=== PATIENT | male | born 1950 | race Caucasian/White ===

== ENCOUNTER 2016-07-26 23:09 | Inpatient (IN) | payer OTHER ==
[~2016-07-26] VITALS: Ht 177.8 cm; Wt 86.5 kg
--- NOTE | 2016-07-27 05:26 | DIAGNOSTIC IMAGING REPORT ---
PROCEDURE: XR LUMBAR SPINE 2 OR 3 VIEWS INDICATION: LOWER BACK PAIN TECHNIQUE: Three views. COMPARISON: None. FINDINGS: Minor levoscoliosis. Normal alignment without fracture. Severe disc space narrowing of all the lumbar discs with moderate to large spur formation. Degenerative changes of the lower facets. IMPRESSION: 1. Severe degenerative changes.
--- NOTE | 2016-07-27 05:31 | DIAGNOSTIC IMAGING REPORT ---
PROCEDURE: XR CHEST 1 VIEW INDICATION: SHORTNESS OF BREATH TECHNIQUE: Portable AP view 01:33 a.m. COMPARISON: None. FINDINGS: Lungs are clear. Heart and mediastinum are normal. Thorax is normal. IMPRESSION: 1. Negative chest.
--- NOTE | 2016-07-27 06:01 | DIAGNOSTIC IMAGING REPORT ---
PROCEDURE: XR CERVICAL SPINE 2 OR 3 VIEW INDICATION: NECK TRAUMA/INJURY TECHNIQUE: Three views. COMPARISON: None. FINDINGS: Normal alignment without fracture. Straightening of the cervical spine. Severe disc space narrowing at all levels, with large spurs. Mild thickening of the prevertebral soft tissues. Odontoid and lateral masses of C1 are normal. IMPRESSION: 1. Severe degenerative changes 2. Loss of lordosis suggestive of muscular spasm 3. Mild prevertebral soft tissue swelling which may secondary to positioning. Post-traumatic or inflammatory changes are less likely. Correlate clinically 4. Results discussed with Dr. Bradley
--- NOTE | 2016-07-27 11:47 | DIAGNOSTIC IMAGING REPORT ---
PROCEDURE: CT ABD/PELVIS WITH CONTRAST CLINICAL INDICATION: Back pain radiating to the abdomen. TECHNIQUE: 125 ml of Isovue 300 were injected intravenously and axial images were obtained of the entire abdomen and pelvis with sagittal and coronal reformations. COMPARISON: Lumbar spine MRI 07/27/2016. FINDINGS: ABDOMEN: Anterior and bilateral paraspinal soft tissue density from mid L1 extending to the bilateral psoas muscles which is contain a small amount of air, consistent with paraspinal and psoas abscesses (largest on the right 1 cm). There is no evidence of endplate destruction to suggest diskitis. Severe degenerative changes of the spine. Minor left basilar atelectasis and trace left pleural effusion. Normal heart size. Small gallstones. Liver, pancreas, spleen, adrenal glands and the kidneys are normal. Minor atherosclerosis of the aorta. Nonspecific bowel gas pattern. PELVIS: Normal appendix. Mild sigmoid diverticulosis. Enlarged prostate (5.3 cm). Normal bladder. No free fluid or free air. IMPRESSION: 1. Small paraspinal abscess at L1 extending to the psoas muscles bilaterally with small psoas abscesses, largest on the right 1 cm 2. Cholelithiasis 3. Sigmoid diverticulosis 4. Minor left basilar atelectasis and trace left pleural effusion 5. Results discussed with Dr. Mcghee All CT scans at this facility use dose modulation, iterative reconstruction, and/or weight-based dosing when appropriate to reduce radiation dose to as low as reasonably achievable.
--- NOTE | 2016-07-27 11:49 | DIAGNOSTIC IMAGING REPORT ---
PROCEDURE: MR LUMBAR SPINE W/WO CONTRAST INDICATION: BACK PAIN TECHNIQUE: T1, T2 and STIR sagittal images. T1 and T2 axial images. Following 17 mL of intravenous gadolinium (ProHance), FAT-SAT T1 sagittal and axial images were obtained. COMPARISON: Lumbar spine x-ray 07/27/2016. FINDINGS: Grade 1 L1-2, L2-3 and L3-4 retrolisthesis with severe narrowing of all the lumbar discs and moderate to large spurs. L3-4 endplate bone marrow edema and mild enhancement but there is no destruction of the endplates, consistent with reactive endplate bone marrow edema. Fatty endplate degenerative changes at L2-3 and L4-5. There is paraspinal enhancing soft tissues anteriorly and bilaterally from mid L1 to mid L3 with low signal intensity anteriorly suggestive of a small air collection in the right psoas muscle at L2-3, highly suspicious for an abscess. Normal conus. L1-2: Small disc bulge/spur complex and facet arthropathy with mild bilateral of foraminal stenosis. No spinal stenosis. L2-3: Small broad-based disc bulge/spur, with facet arthropathy. Moderate bilateral foraminal stenosis. No spinal stenosis. L3-4: Moderate broad-based disc bulge/spur complex and facet arthropathy. Moderate bilateral foraminal stenosis. No spinal stenosis. L4-5: Small broad-based disc bulge/spur complex and facet arthropathy resulting in moderate bilateral foraminal stenosis. No spinal stenosis. L5-S1: Mild broad-based disc bulge/spur complex and facet arthropathy. There is moderate right and severe left foraminal stenosis. No spinal stenosis. IMPRESSION: 1. Paraspinal enhancing soft tissue from mid L1 to mid L3 consistent with paraspinal and bilateral psoas muscle abscesses. No evidence of diskitis. 2. Severe multilevel degenerative changes with grade 1 L1-2, L2-3 and L3-4 retrolisthesis 3. Mild bilateral L1-2, moderate bilateral L2-3, L3-4, L4-5, moderate right and severe left L5-S1 foraminal stenosis 4. Results discussed with Dr. Mcghee
--- NOTE | 2016-07-27 12:17 | ED NURSING NOTES ---
Clinical Report - Nurses [facility] [address] [place] [address] 07/26/2016 23:14 Patient: MIGDALIA MAURICIO TRIAGE Triage time 00:51 Jul 27 2016. Acuity: LEVEL 3. Chief Complaint: BACK PAIN. NAZARIO COMA SCORE: Nazario Coma Scale: 15- eyes open spontaneously (4); best verbal response- oriented x 4 (5); best motor response- obeys commands (6). --01:00 Ronnell Coburn R.N. 00:51 07/27/16. BP: 108/55. HR: 96. RR: 18. O2 saturation: 100%. Temp: 98.4 F. Pain level now 9/10. --01:00 Ronnell Coburn R.N. Weight: 80.7 kg stated. Height/Length: 70 inches Per Patient. BMI: 25.5. --00:58 Ronnell Coburn R.N. Medications GlyBURIDE Oral. --00:52 Ronnell Coburn R.N. MetFORMIN HCl Oral. --00:52 Ronnell Coburn R.N. Allergies No Known Drug Allergy. --00:53 Ronnell Coburn R.N. History Arrived by private vehicle. Historian: patient. Accompanied by friend. ( Since the injury has been having chills.). He has had numbness, weakness and trouble walking. History of recent trauma (moderate)- lifting injury (Tried to lift a post out of the ground a week ago felt a strain). No tingling, fever or extremity pain. 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 PAST MEDICAL HX: Diabetes mellitus. No history of hypertension, heart disease or lung disease. Tetanus status: up-to-date. Immunizations: up-to-date. SOCIAL HX: Never smoker. History of drug use: marijuana. No alcohol use. No infectious disease exposure. SELF HARM ASSESSMENT: A self harm assessment was performed. The patient answered "no" to the question "Have you recently felt down, depressed, or hopeless?" and "Do you have thoughts of harming or killing yourself?". FALL RISK ASSESSMENT: Fall risk assessment completed. No fall risk identified. NUTRITIONAL RISK ASSESSMENT: The nutritional risk assessment revealed no deficiencies. FUNCTIONAL ASSESSMENT: Functional assessment: no impairments noted. LEARNING NEEDS ASSESSMENT: The learning needs assessment revealed no barriers. ABUSE ASSESSMENT: Abuse assessment: (yes) The patient was asked "Do you feel safe in your home?". SKIN INTEGRITY ASSESSMENT: Skin integrity risk assessment completed. No skin integrity risk identified. --: Ronnell Coburn R.N. PROBLEMS: Headache. Anxiety Reaction. Hearing Loss. Diabetes Mellitus. --00:56 Ronnell Coburn R.N. ADDITIONAL SURGERIES: Elbow surgery . Eye surgery. Left knee . --00:56 Ronnell Coburn R.N. Interventions ID band on patient. --01: Ronnell Coburn R.N. PHYSICAL ASSESSMENT To room via wheelchair. GENERAL / NEURO / PSYCH: Alert. Oriented X 4. Appears anxious. RESPIRATORY: Respirations not labored. Chest nontender. Breath sounds within normal limits. CVS: Normal heart rate and rhythm. Capillary refill less than 2 seconds. GI / : Abdomen soft and nontender. Bowel sounds within normal limits. EXTREMITIES: Sensation intact in extremities. ROM of extremities within normal limits. BACK: ( Pain going down from back to right knee). Normal inspection of the neck and back. Vertebral point tenderness. Soft tissue tenderness. --01: Ronnell Coburn R.N. NURSING PROGRESS NOTES The initial plan of care for this patient includes an assessment with efforts to address patient positioning, appropriate ambient lighting and comfortable environmental temperature; impairment of the musculoskeletal system. Pulse oximeter and NIBP monitor placed on patient. Cold pack applied. Patient gowned. Head of bed elevated 75 degrees. Reassurance given. Call light placed in reach. Side rails up x 2. Bed placed in lowest position. Brakes of bed on. --01: Ronnell Coburn R.N. 01:26 07/27/2016 Site #1 started via IV in the right antecubital space with an 20g angiocath, with aseptic technique and good blood return; one attempt. Blood drawn: rainbow set. Labeled in the presence of the patient and sent to the lab. Saline lock flushed with 10 mL saline. --01: Ronnell Coburn R.N. 01:26 07/27/2016 Dilaudid (HYDROmorphone HCl PF) IVP 0.5 mg given over 1 minute(s) via site #1. 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 IV patency established. IV site checked: no pain, redness, or swelling. IV flushed thoroughly pre- and post-medication administration. --01: Ronnell Coburn R.N. 01:28 07/27/2016 Ativan (LORazepam) IVP 0.5 mg given over 1 minute(s) via site #1. 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 IV patency established. IV site checked: no pain, redness, or swelling. IV flushed thoroughly pre- and post-medication administration. --01:28 Ronnell Coburn R.N. 02:14 07/27/2016 Started bag #1 1000 mL IV Fluids IV NS (Saline); bolus of 750 mL over 46 minute(s) then at 500 mL/hr via site #1 via IV pump. Allergies verified and confirmed 5 rights. IV patency established. IV site checked: no pain, redness, or swelling. IV flushed thoroughly pre- and post-medication administration. --02:17 Arabella Talavera R.N. 02:17 07/27/16. BP: 107/48. HR: 88. RR: 15. O2 saturation: 99% on room air. Bernard-Paz pain scale: 2/10. --02:18 Arabella Talavera R.N. ( urinal placed at bedside, sample requested.). --02:18 Arabella Talavera R.N. ( pt encouraged to give urine sample. Pt to stand at bedside and attempt to use urinal.). --02:56 Arabella Talavera R.N. 03:08 07/27/2016 IV Fluids IV NS Discontinued: bag #1 completed. Total amount infused: 750 mL. IV patency established. IV site checked: no pain, redness, or swelling. IV flushed thoroughly. --03:10 Layla Warner R.N. 03:09 07/27/2016 Started bag #1 250 mL IV Fluids IV NS (Saline); at 500 mL/hr over 2 hour(s) via site #1 via IV pump. Allergies verified and confirmed 5 rights. IV patency established. IV site checked: no pain, redness, or swelling. IV flushed thoroughly pre- and post-medication administration. --03:09 Layla Warner R.N. Checked patient name and birthdate: patient confirmed. Instructions provided to collect clean catch urine and patient verbalized understanding. Clean catch urine collected with return of christine-colored clear urine; sample sent to lab for urinalysis. Specimen labeled in the presence of the patient. --03:11 Layla Warner R.N. 03:44 07/27/2016 IV Fluids IV NS Discontinued: bag #1 completed. Total amount infused: 1000 mL. IV patency established. IV site checked: no pain, redness, or swelling. IV flushed thoroughly. --03:44 Arabella Talavera R.N. 06:46 07/27/16. BP: 116/67. HR: 77. RR: 15. O2 saturation: 99%. --06:47 Arabella Talavera R.N. 07:06 07/27/16. Care transferred and report received. --07:06 Ori Stewart R.N. 07:30 07/27/16. --07:30 Ori Stewart R.N. 07:30 07/27/16. BP: 123/70. HR: 79. RR: 14. O2 saturation: 100% on room air. Temp: 98.1 F (oral). --07:30 Ori Stewart R.N. 07:30 07/27/16. Patient and family informed about reason for wait and about plan of care. --07:30 Ori Stewart R.N. 07:31 07/27/16. GENERAL / NEURO / PSYCH: Alert. Oriented X 4. RESPIRATORY: No respiratory distress. Breath sounds normal. SKIN: Skin is warm and dry. Skin color within normal limits. --07:31 Ori Stewart R.N. 07:44 07/27/2016 Dilaudid (HYDROmorphone HCl PF) IVP 0.5 mg given over 2 minute(s) via site #1. Allergies verified, confirmed 5 rights and sedative warning given to the patient. IV patency established. IV site checked: no pain, redness, or swelling. IV flushed thoroughly pre- and post-medication administration. IVP given by RN. --07:44 Ori Stewart R.N. 07:44 07/27/16. Pulse oximeter and NIBP monitor placed on patient; monitor alarms on. --07:45 Ori Stewart R.N. Patient waiting for diagnostic study to be done (MRI). --07:45 Ori Stewart R.N. 07:53 07/27/16. ( Pt is NPO). --07:53 Ori Stewart R.N. 08:07 07/27/16. ( Tech calling MRI to schedule MRI for today). --08:07 Ori Stewart R.N. 08:31 07/27/16. ( Lab to draw labs). --08:31 Ori Stewart R.N. 08:31 07/27/16. ( MRI at 1000). --08:31 Ori Stewart R.N. 08:57 07/27/2016 Ativan (LORazepam) IVP 0.5 mg given over 2 minute(s) via site #1. Allergies verified, confirmed 5 rights and sedative warning given to the patient. IV patency established. IV site checked: no pain, redness, or swelling. IV flushed thoroughly pre- and post-medication administration. IVP given by RN. --08:57 Ori Stewart R.N. 08:58 07/27/16. ( MRI to be completed at 1000, Consent started). --08:58 Ori Stewart R.N. 08:58 07/27/16. BP: 119/72. HR: 72. RR: 14. O2 saturation: 100% on room air. --08:58 Ori Stewart R.N. 08:58 07/27/16. --08:58 Ori Stewart R.N. 09:37 07/27/16. Patient transported to radiology by wheelchair with tech. (to MRI). --09:37 Ori Stewart R.N. Patient transported to MRI by wheelchair. --09:40 Jillian Keita ER Tech1 10:33 07/27/16. Patient returned from MRI by wheelchair with tech. --10:33 Ori Stewart R.N. 10:34 07/27/16. --10:34 Ori Stewart R.N. 10:33 07/27/16. BP: 121/71. HR: 82. RR: 14. O2 saturation: 100% on room air. Temp: 98.2 F (oral). --10:34 Ori Stewart R.N. 10:50 07/27/2016 Dilaudid (HYDROmorphone HCl PF) IVP 0.5 mg given over 2 minute(s) via site #1. Allergies verified, confirmed 5 rights and sedative warning given to the patient. IV patency established. IV site checked: no pain, redness, or swelling. IV flushed thoroughly pre- and post-medication administration. IVP given by RN. --10:51 Ori Stewart R.N. 10:55 07/27/16. Patient informed about reason for wait and about plan of care. --10:55 Ori Stewart R.N. 10:56 07/27/16. Patient waiting for diagnostic study result (MRI). --10:56 Ori Stewart R.N. 10:56 07/27/16. Patient waiting for disposition. --10:56 Ori Stewart R.N. 11:00 07/27/16. BP: 100/73 (regular adult cuff) taken on the right arm, while sitting. HR: 66. RR: 18. O2 saturation: 100% on room air. --11:00 Smiley Olivas R.N. 11:21 07/27/16. ( Pt to CT as pt has spinal abscess). --11:21 Ori Stewart R.N. 11:47 07/27/16. Patient informed about reason for wait and about plan of care. --11:47 Ori Stewart R.N. 12:17 07/27/2016 Started bag #1 1000 mL IV Fluids IV NS (Saline); at 200 mL/hr over 5 hour(s) via site #1 via IV pump. Allergies verified and confirmed 5 rights. IV patency established. IV site checked: no pain, redness, or swelling. IV flushed thoroughly pre- and post-medication administration. --12:17 Smiley Olivas R.N. 12:17 07/27/16. ( Patient has dry mouth, given mouth swab). --12:17 Smiley Olivas R.N. 12:18 07/27/16. Finger stick glucose: 229 mg/dL; ordered; performed by nurse. --12:18 Ori Stewart R.N. 12:18 07/27/16. Patient informed about plan of care (Transfer). --12:18 Ori Stewart R.N. 12:07/27/16. BP: 115/62. HR: 72. RR: 14. O2 saturation: 100% on room air. --12:22 Ori Stewart R.N. 12:22 07/27/16. --12:22 Ori Stewart R.N. 12:24 07/27/16. ( talking with [facility] transfer center). --12:24 Ori Stewart R.N. 12:33 07/27/16. Patient informed about plan of care. --12:33 Ori Stewart R.N. <<STRICKEN ENTRY-- 12:35 07/27/16. BP: 128/67 (regular adult cuff) taken on the left arm, via an automated monitor, while lying. HR: 99. RR: 14. O2 saturation: 100%. Temp: 98.2 F (oral). Pain level now: 11/11. --12:37 Shell Batista R.N. --END STRIKE>> Charted on wrong patient. --12:39 Shell Batista R.N. <<STRICKEN ENTRY-- Reassurance given. The patient is calm. Overall patient status is the same- he states feels the same. --12:37 Shell Batista R.N. --END STRIKE>> Charted On Wrong Patient --12:39 Shell Batista R.N. 14:18 07/27/16. ( Pt is sleeping). --14:18 Ori Stewart R.N. 14:18 07/27/16. GENERAL / NEURO / PSYCH: Alert. Oriented X 4. RESPIRATORY: No respiratory distress. Breath sounds normal. SKIN: Skin is warm and dry. --14:18 Ori Stewart R.N. 14:57 07/27/16. BP: 113/68. HR: 82. RR: 16. O2 saturation: 100% on room air. Temp: 98.2 F (oral). --14:57 Ori Stewart R.N. 14:57 07/27/16. --14:57 Ori Stewart R.N. 15:52 07/27/16. --15:52 Ori Stewart R.N. 15:52 07/27/16. BP: 119/67. HR: 81. RR: 14. O2 saturation: 100% on room air. Temp: 98.2 F (oral). --15:52 Ori Stewart R.N. 18:30 07/27/2016 Dilaudid (HYDROmorphone HCl PF) IVP 0.5 mg given over 2 minute(s) via site #1. Allergies verified, confirmed 5 rights and sedative warning given to the patient. IV patency established. IV site checked: no pain, redness, or swelling. IV flushed thoroughly pre- and post-medication administration. IVP given by RN. --18:30 Ori Stewart R.N. 18:31 07/27/16. ( Gave pt a sandwich, water and cheese). --18:31 Ori Stewart R.N. 18:31 07/27/16. ( OK to eat per ). --18:31 Ori Stewart R.N. 18:32 07/27/16. Finger stick glucose: 255 mg/dL. --18:32 Reuben Rodarte ( cannot find placement for patient, pt to stay in ER until placement can occur, unable to find an accepting provider/hospital at this time and has not been able to during ER stay.). --18:37 Ori Stewart R.N. 18:35 07/27/16. BP: 117/56. HR: 82. RR: 14. O2 saturation: 100% on room air. Temp: 97.9 F (oral). Pain level now: 06/11. --18:37 Ori Stewart R.N. 18:37 07/27/16. Patient informed about reason for wait and about plan of care. --18:37 Ori Stewart R.N. 19:57 07/27/2016 Started 900 mg of Clindamycin IVPB in bag #1 50 mL; at 100 mL/hr via site #1 via IV pump. Allergies verified and confirmed 5 rights. IV patency established. IV site checked: no pain, redness, or swelling. IV flushed thoroughly pre- and post-medication administration. --19:57 Casey Dia R.N. ( atbx hung for primary RN infusing on pump as ordered). --19:58 Casey Dia R.N. 20:25 07/27/2016 Started 500 mg of IMIPENEM-CILASTATIN IVPB in bag #1 100 mL; at 200 mL/hr over 30 minute(s) via site #1 via IV pump. Allergies verified and confirmed 5 rights. IV patency established. IV site checked: no pain, redness, or swelling. IV flushed thoroughly pre- and post-medication administration. --20:25 Arabella Talavera R.N. 20:25 07/27/2016 Clindamycin IVPB Discontinued: bag #1 completed. Total amount infused: 50 mL. IV patency established. IV site checked: no pain, redness, or swelling. IV flushed thoroughly. --20:25 Arabella Talavera R.N. Intake & Output 10:33 07/27/16. Urine: 400 mL, with return of christine-colored urine. --10:33 Ori Stewart R.N. DISPOSITION / DISCHARGE 20:10 07/27/16. BP: 166/75. HR: 110. RR: 16. O2 saturation: 94% on room air. Temp: 98.9 F (oral). Bernard-Paz pain scale: 07/12. --20:10 Arabella Talavera R.N. Patient's personal items include, clothing; items were placed in belongings bag. --20:11 Arabella Talavera R.N. Report was given to a nurse via a phone call. Report included patient's care, treatment, medications, reviewed medication reconcilliation, and condition (including any recent changes or anticipated changes). All questions were answered. Report was acknowledged. (to REILLY Sanchez). --20:34 Arabella Talavera R.N. Transported via stretcher by nurse with IV. --20:43 Arabella Talavera R.N. 20:44 07/27/2016 Site #[address] upon admission; patent, no pain and no signs of infection or infiltration. --20:44 Arabella Talavera R.N. 20:44 07/27/2016 IMIPENEM-CILASTATIN IVPB Continued: at the rate of 300 mL/hr. 50 mL remaining bag #1. IV patency established. IV site checked: no pain, redness, or swelling. IV flushed thoroughly. --20:44 Arabella Talavera R.N. Locked/Released at 07/28/2016 5:08 by Arabella Talavera R.N.
--- NOTE | 2016-07-27 12:17 | ED CLINICAL REPORT ---
Clinical Report - Physicians/Mid Levels [facility] [address] [place] [address] 07/26/2016 23:14 [id number] Time Seen: 00:51 Jul 27 2016. Arrived- By private vehicle. Historian- patient. HISTORY OF PRESENT ILLNESS Chief Complaint: NECK PAIN and BACK PAIN. It is described as being in the area of the cervical spine and lower lumbar spine. Onset- about 7 days [employer] and it is still present. No bladder dysfunction, bowel dysfunction or motor loss. Sensory loss involving the right foot and left foot (chronically due to diabetes.). Patient notes an injury. Mechanism of injury- (lifting a post). No other injury. Similar symptoms previously: Recent medical care: Not recently seen/assessed. REVIEW OF SYSTEMS No fever, chills, headache, depression or sore throat. No cough, difficulty breathing, chest pain, skin rash or abdominal pain. No nausea, vomiting, diarrhea, black stools or difficulty with urination. No urinary frequency or bloody stools. poor po times 7 days. Not sure how blood sugars are doing. All systems otherwise negative, except as recorded above. PAST HISTORY Diabetes mellitus. Has had back injury. He has had prior back pain. Medications: MetFORMIN HCl Oral. GlyBURIDE Oral. Allergies: No Known Drug Allergy. SOCIAL HISTORY Never smoker. History of drug use: marijuana. No alcohol use. ADDITIONAL NOTES The nursing notes have been reviewed. PHYSICAL EXAM Vital Signs: 07/27/2016 00:51 BP: 108/55. HR: 96. RR: 18. O2 saturation: 100%. Temp: 98.4 F. Appearance: Alert. Appears to be in pain. Patient in moderate distress. (hyperventilating). HEENT: Normal external inspection. ENT: Pharynx normal. Neck: Normal inspection. Pain in the neck upon movement. Decrease in ROM. No vertebral tenderness. No lymphadenopathy or meningeal signs. CVS: Normal heart rate and rhythm. Heart sounds normal. Pulses normal. Respiratory: No respiratory distress. Breath sounds normal. Chest nontender. (hyperventilating). Abdomen: Normal inspection. Soft and nontender. Bowel sounds normal. Back: Normal inspection. Moderate soft tissue tenderness in the right lower and left lower lumbar area. Muscle spasm present. Limited ROM in the back. Skin: Skin warm. Normal skin color. No rash. Extremities: Extremities exhibit normal ROM. Extremities nontender. No calf tenderness. Neuro: Oriented X 3. Mood/affect normal. No motor deficit. Sensory deficit present. Altered sensation to light touch on the right and left leg. Reflexes normal. LABS, X-RAYS, AND EKG X-Rays: Chest X-ray negative. C-Spine X-rays: Moderate degenerative joint disease with moderate narrowing of disc spaces. Views: 3 view C-spine series. Technique: good. The X-rays were independently viewed by me and interpreted contemporaneously by me. Prior films were not available for comparison. LS-Spine X-rays: Degenerative joint disease. (SEVERE DJD L-spine.). Views: AP, lateral and coned down view. The X-rays were independently viewed by me and interpreted contemporaneously by me. CT Abdomen - Pelvis: 1. Small paraspinal abscess at L1 extending to the psoas muscles bilaterally with small psoas abscesses, largest on the right 1 cm 2. Cholelithiasis 3. Sigmoid diverticulosis 4. Minor left basilar atelectasis and trace left pleural effusion. Study type: upper abdomen; lower abdomen; pelvis. Abdomen - pelvic CT performed with IV contrast. The study was interpreted by the radiologist and discussed with the radiologist. MRI L-Spine: Note- 1. Paraspinal enhancing soft tissue from mid L1 to mid L3 consistent with paraspinal and bilateral psoas muscle abscesses. No evidence of diskitis. 2. Severe multilevel degenerative changes with grade 1 L1-2, L2-3 and L3-4 retrolisthesis 3. Mild bilateral L1-2, moderate bilateral L2-3, L3-4, L4-5, moderate right and severe left L5-S1 foraminal stenosis. Laboratory Tests: UA-Culture if indicated: (ERNESTINE: 07/27/2016 03:02) ( MsgRcvd 07/27/2016 03:35) Final results Test Result Flag Units (Reference) URINE COLOR YELLOW URINE APPEARANCE CLEAR URINE GLUCOSE 2+ (NEGATIVE) URINE BILIRUBIN NEGATIVE (NEGATIVE) URINE KETONE TRACE (NEGATIVE) URINE SPECIFIC GRAVITY 1.020 (1.010-1.030) URINE PH 6.0 (5.0-8.0) URINE PROTEIN 1+ (NEGATIVE) URINE UROBILINOGEN 1.0 EU/dL (0.2-1.0) URINE NITRITE NEGATIVE (NEGATIVE) URINE BLOOD 1+ (NEGATIVE) URINE LEUK ESTERASE NEGATIVE (NEGATIVE) URINE RBC 0-1 rbc/hpf (0-1) URINE WBC 1-3 wbc/hpf (0-1) URINE EPITHELIAL CELLS NONE SEEN EPI/hpf (0-5) URINE BACTERIA NONE SEEN (NONE SEEN) URINE COMMENT CULT NOT INDICATED 1+ AMORPHOUSURINE CULTURES ARE SET-UP BASED ON THE FOLLOWING CRITERIA:POSITIVE NITRITEPOSITIVE LEUKOCYTE ESTERASEGREATER THAN 10 WHITE BLOOD CELLSMODERATE (2+) OR GREATER BACTERIA ESR: (ERNESTINE: 07/27/2016 08:40) ( [facility] 07/27/2016 09:26) Final results Test Result Flag Units (Reference) SED RATE WESTERGREN 52 H mm/hr (0-20) CBC w Diff: (ERNESTINE: 07/27/2016 01:30) ( [facility] 07/27/2016 03:30) Final results Test Result Flag Units (Reference) WHITE BLOOD COUNT 9.4 K/uL (4.5-11.5) RED BLOOD COUNT 4.31 L M/uL (4.50-5.90) HEMOGLOBIN 12.8 L gm/dL (13.5-17.5) HEMATOCRIT 37.5 L % (41.0-53.0) MEAN CELL VOLUME 87 fL (80-100) MEAN CORPUSCULAR HGB 30 pg (26-34) MEAN CORPUSCULAR HGB CONC 34 g/dL (31-37) RED CELL DISTRIBUTION WIDTH 13.6 % (11.6-14.8) PLATELET COUNT 174 K/uL (150-400) POLY % 55 % (50-75) BAND % 35 H % (0-8) LYMPH 3 L % (25-40) MONO 7 % (3-14) EOSINOPHIL % 0 % (0-4) BASOPHIL % 0 % (0-2) METAMYELOCYTE % 0 % (0-1) MYELOCYTE 0 % (0-1) OTHER CELL TYPE 0 [id number]: (ERNESTINE: 07/27/2016 08:40) ( [facility] 07/27/2016 09:55) Final results Test Result Flag Units (Reference) C-REACTIVE PROTEIN 39.3 H mg/dL (0.0-0.9) VERIFIED BY DILUTION Lactate, Serum: (ERNESTINE: 07/27/2016 08:40) ( [facility] 07/27/2016 09:12) Final results Test Result Flag Units (Reference) LACTIC ACID 1.1 mmol/L (0.4-2.0) [id number]: (ERNESTINE: 07/27/2016 01:30) ( [facility] 07/27/2016 05:02) Final results Test Result Flag Units (Reference) PROCALCITONIN 4.8 H ng/mL (0-0.5) PCT Concentration: Interpretation : Risk/option for action PCT <=0.5 ng/mL : Systemic : Low risk forinfection(sepsis): progression to severeis not likely. : systemic infection.Local bacterial : CAUTION-PCT levelsinfection is : below 0.5 ng/mL do notpossible. : exclude an infection,because localizedinfections (withoutsystemic signs) may beassociated with suchlow levels. If PCT ismeasured very earlyafter a bacterialchallenge (usually <6hours), these valuesmay still be low. Inthis case PCT shouldbe re-assessed 6-24hours later. PCT >0.5 and : Systemic infection: Moderate risk for<= 2 ng/mL : (sepsis) is : progression to severepossible, but : systemic infection.other conditions : The patient should beare known to : closely monitoredelevate PCT. : both clinically andby re-assessing PCTwithin 6-24 hours. PCT > 2 ng/mL : Systemic infection: High risk for(sepsis) is likely: progression to severeunless other : systemic infection.causes are known. : PCT >= 10 ng/mL : Important systemic: High likelihood ofinflammatory : severe sepsis orresponse, almost : septic shock.exclusively due to:severe bacterial :sepsis or septic :shock. : CHEM 13 PANEL: (ERNESTINE: 07/27/2016 01:30) ( MsgRcvd 07/27/2016 02:08) Final results Test Result Flag Units (Reference) GLUCOSE 305 H mg/dL (70-110) BUN 34 H mg/dL (7-18) CREATININE 1.3 mg/dL (0.6-1.3) Estimated GFR 58.70 mL/min Estimated GFR- >60 mL/min Note: Persistent reduction over 3 months in eGFR<60 mL/min/1.73 m2 defines CKD. Patients with eGFR values>=60 mL/min/1.73 m2 may also have CKD if evidence ofpersistent proteinuria. Additional information may be foundat www.kidney.org. SODIUM 127 L mmol/L (136-145) POTASSIUM 3.2 L mmol/L (3.5-5.1) CHLORIDE 92 L mmol/L (98-107) CARBON DIOXIDE 21 mmol/L (21-32) CALCIUM 9.1 mg/dL (8.5-10.1) TOTAL PROTEIN 6.9 g/dL (6.4-8.2) ALBUMIN 2.4 L g/dL (3.3-5.0) BILIRUBIN, TOTAL 1.0 mg/dL (0.0-1.0) ALKALINE PHOSPHATASE 74 U/L (46-116) AST (SGOT) 15 U/L (15-37) ALT (SGPT) 21 U/L (12-78) MAGNESIUM 1.8 mg/dL (1.8-2.4) CPK 31 U/L (24-260) TROPONIN I <0.05 ng/mL (0.00-1.5) TROPONIN REFERENCE RANGE:<0.1 NEGATIVE0.1-1.5 INDETERMINANT>1.5 POSITIVE . PROGRESS AND PROCEDURES Course of Care: IV NS Dilaudid 0.5 mg IV Ativan 0.5 mg IV Patient is stable. Symptoms better. Pt states he has had chills, he has an elevated band count and elevated PCT of 4.8. Will check CT of lumbar spine. Discussed case with on-call health care provider, (call returned 13:19 [facility] spine at [facility]. Reviewed images and no discitis or epidural abscess, no need for spine Sx.). Discussed case with on-call health care provider, (Dr. Trip Santos at [facility], Gen/Trauma Sx, no beds available.). Patient/family counseled. Disposition: Admitted to Acute Care. Admit decision based on need for further evaluation, monitoring and IV antibiotics. CLINICAL IMPRESSION Single deep abscess (Psoas abscess). (Electronically signed by Jake Mcghee Dr. 07/27/2016 20:41)
--- NOTE | 2016-07-27 12:17 | ED CLINICAL REPORT ---
Clinical Report - Physicians/Mid Levels [facility] [address] [place] [place] [address] 07/26/2016 23:14 [id number] Time Seen: 00:51 Jul 27 2016. Arrived- By private vehicle. Historian- patient. HISTORY OF PRESENT ILLNESS Chief Complaint: NECK PAIN and BACK PAIN. It is described as being in the area of the cervical spine and lower lumbar spine. Onset- about 7 days [employer] and it is still present. No bladder dysfunction, bowel dysfunction or motor loss. Sensory loss involving the right foot and left foot (chronically due to diabetes.). Patient notes an injury. Mechanism of injury- (lifting a post). No other injury. Similar symptoms previously: Recent medical care: Not recently seen/assessed. REVIEW OF SYSTEMS No fever, chills, headache, depression or sore throat. No cough, difficulty breathing, chest pain, skin rash or abdominal pain. No nausea, vomiting, diarrhea, black stools or difficulty with urination. No urinary frequency or bloody stools. poor po times 7 days. Not sure how blood sugars are doing. All systems otherwise negative, except as recorded above. PAST HISTORY Diabetes mellitus. Has had back injury. He has had prior back pain. Medications: MetFORMIN HCl Oral. GlyBURIDE Oral. Allergies: No Known Drug Allergy. SOCIAL HISTORY Never smoker. History of drug use: marijuana. No alcohol use. ADDITIONAL NOTES The nursing notes have been reviewed. PHYSICAL EXAM Vital Signs: 07/27/2016 00:51 BP: 108/55. HR: 96. RR: 18. O2 saturation: 100%. Temp: 98.4 F. Appearance: Alert. Appears to be in pain. Patient in moderate distress. (hyperventilating). HEENT: Normal external inspection. ENT: Pharynx normal. Neck: Normal inspection. Pain in the neck upon movement. Decrease in ROM. No vertebral tenderness. No lymphadenopathy or meningeal signs. CVS: Normal heart rate and rhythm. Heart sounds normal. Pulses normal. Respiratory: No respiratory distress. Breath sounds normal. Chest nontender. (hyperventilating). Abdomen: Normal inspection. Soft and nontender. Bowel sounds normal. Back: Normal inspection. Moderate soft tissue tenderness in the right lower and left lower lumbar area. Muscle spasm present. Limited ROM in the back. Skin: Skin warm. Normal skin color. No rash. Extremities: Extremities exhibit normal ROM. Extremities nontender. No calf tenderness. Neuro: Oriented X 3. Mood/affect normal. No motor deficit. Sensory deficit present. Altered sensation to light touch on the right and left leg. Reflexes normal. LABS, X-RAYS, AND EKG X-Rays: Chest X-ray negative. C-Spine X-rays: Moderate degenerative joint disease with moderate narrowing of disc spaces. Views: 3 view C-spine series. Technique: good. The X-rays were independently viewed by me and interpreted contemporaneously by me. Prior films were not available for comparison. LS-Spine X-rays: Degenerative joint disease. (SEVERE DJD L-spine.). Views: AP, lateral and coned down view. The X-rays were independently viewed by me and interpreted contemporaneously by me. CT Abdomen - Pelvis: 1. Small paraspinal abscess at L1 extending to the psoas muscles bilaterally with small psoas abscesses, largest on the right 1 cm 2. Cholelithiasis 3. Sigmoid diverticulosis 4. Minor left basilar atelectasis and trace left pleural effusion. Study type: upper abdomen; lower abdomen; pelvis. Abdomen - pelvic CT performed with IV contrast. The study was interpreted by the radiologist and discussed with the radiologist. MRI L-Spine: Note- 1. Paraspinal enhancing soft tissue from mid L1 to mid L3 consistent with paraspinal and bilateral psoas muscle abscesses. No evidence of diskitis. 2. Severe multilevel degenerative changes with grade 1 L1-2, L2-3 and L3-4 retrolisthesis 3. Mild bilateral L1-2, moderate bilateral L2-3, L3-4, L4-5, moderate right and severe left L5-S1 foraminal stenosis. Laboratory Tests: UA-Culture if indicated: (ERNESTINE: 07/27/2016 03:02) ( MsgRcvd 07/27/2016 03:35) Final results Test Result Flag Units (Reference) URINE COLOR YELLOW URINE APPEARANCE CLEAR URINE GLUCOSE 2+ (NEGATIVE) URINE BILIRUBIN NEGATIVE (NEGATIVE) URINE KETONE TRACE (NEGATIVE) URINE SPECIFIC GRAVITY 1.020 (1.010-1.030) URINE PH 6.0 (5.0-8.0) URINE PROTEIN 1+ (NEGATIVE) URINE UROBILINOGEN 1.0 EU/dL (0.2-1.0) URINE NITRITE NEGATIVE (NEGATIVE) URINE BLOOD 1+ (NEGATIVE) URINE LEUK ESTERASE NEGATIVE (NEGATIVE) URINE RBC 0-1 rbc/hpf (0-1) URINE WBC 1-3 wbc/hpf (0-1) URINE EPITHELIAL CELLS NONE SEEN EPI/hpf (0-5) URINE BACTERIA NONE SEEN (NONE SEEN) URINE COMMENT CULT NOT INDICATED 1+ AMORPHOUSURINE CULTURES ARE SET-UP BASED ON THE FOLLOWING CRITERIA:POSITIVE NITRITEPOSITIVE LEUKOCYTE ESTERASEGREATER THAN 10 WHITE BLOOD CELLSMODERATE (2+) OR GREATER BACTERIA ESR: (ERNESTINE: 07/27/2016 08:40) ( [facility] 07/27/2016 09:26) Final results Test Result Flag Units (Reference) SED RATE WESTERGREN 52 H mm/hr (0-20) CBC w Diff: (ERNESTINE: 07/27/2016 01:30) ( [facility] 07/27/2016 03:30) Final results Test Result Flag Units (Reference) WHITE BLOOD COUNT 9.4 K/uL (4.5-11.5) RED BLOOD COUNT 4.31 L M/uL (4.50-5.90) HEMOGLOBIN 12.8 L gm/dL (13.5-17.5) HEMATOCRIT 37.5 L % (41.0-53.0) MEAN CELL VOLUME 87 fL (80-100) MEAN CORPUSCULAR HGB 30 pg (26-34) MEAN CORPUSCULAR HGB CONC 34 g/dL (31-37) RED CELL DISTRIBUTION WIDTH 13.6 % (11.6-14.8) PLATELET COUNT 174 K/uL (150-400) POLY % 55 % (50-75) BAND % 35 H % (0-8) LYMPH 3 L % (25-40) MONO 7 % (3-14) EOSINOPHIL % 0 % (0-4) BASOPHIL % 0 % (0-2) METAMYELOCYTE % 0 % (0-1) MYELOCYTE 0 % (0-1) OTHER CELL TYPE 0 [id number]: (ERNESTINE: 07/27/2016 08:40) ( [facility] 07/27/2016 09:55) Final results Test Result Flag Units (Reference) C-REACTIVE PROTEIN 39.3 H mg/dL (0.0-0.9) VERIFIED BY DILUTION Lactate, Serum: (ERNESTINE: 07/27/2016 08:40) ( [facility] 07/27/2016 09:12) Final results Test Result Flag Units (Reference) LACTIC ACID 1.1 mmol/L (0.4-2.0) [id number]: (ERNESTINE: 07/27/2016 01:30) ( [facility] 07/27/2016 05:02) Final results Test Result Flag Units (Reference) PROCALCITONIN 4.8 H ng/mL (0-0.5) PCT Concentration: Interpretation : Risk/option for action PCT <=0.5 ng/mL : Systemic : Low risk forinfection(sepsis): progression to severeis not likely. : systemic infection.Local bacterial : CAUTION-PCT levelsinfection is : below 0.5 ng/mL do notpossible. : exclude an infection,because localizedinfections (withoutsystemic signs) may beassociated with suchlow levels. If PCT ismeasured very earlyafter a bacterialchallenge (usually <6hours), these valuesmay still be low. Inthis case PCT shouldbe re-assessed 6-24hours later. PCT >0.5 and : Systemic infection: Moderate risk for<= 2 ng/mL : (sepsis) is : progression to severepossible, but : systemic infection.other conditions : The patient should beare known to : closely monitoredelevate PCT. : both clinically andby re-assessing PCTwithin 6-24 hours. PCT > 2 ng/mL : Systemic infection: High risk for(sepsis) is likely: progression to severeunless other : systemic infection.causes are known. : PCT >= 10 ng/mL : Important systemic: High likelihood ofinflammatory : severe sepsis orresponse, almost : septic shock.exclusively due to:severe bacterial :sepsis or septic :shock. : CHEM 13 PANEL: (ERNESTINE: 07/27/2016 01:30) ( MsgRcvd 07/27/2016 02:08) Final results Test Result Flag Units (Reference) GLUCOSE 305 H mg/dL (70-110) BUN 34 H mg/dL (7-18) CREATININE 1.3 mg/dL (0.6-1.3) Estimated GFR 58.70 mL/min Estimated GFR- >60 mL/min Note: Persistent reduction over 3 months in eGFR<60 mL/min/1.73 m2 defines CKD. Patients with eGFR values>=60 mL/min/1.73 m2 may also have CKD if evidence ofpersistent proteinuria. Additional information may be foundat www.kidney.org. SODIUM 127 L mmol/L (136-145) POTASSIUM 3.2 L mmol/L (3.5-5.1) CHLORIDE 92 L mmol/L (98-107) CARBON DIOXIDE 21 mmol/L (21-32) CALCIUM 9.1 mg/dL (8.5-10.1) TOTAL PROTEIN 6.9 g/dL (6.4-8.2) ALBUMIN 2.4 L g/dL (3.3-5.0) BILIRUBIN, TOTAL 1.0 mg/dL (0.0-1.0) ALKALINE PHOSPHATASE 74 U/L (46-116) AST (SGOT) 15 U/L (15-37) ALT (SGPT) 21 U/L (12-78) MAGNESIUM 1.8 mg/dL (1.8-2.4) CPK 31 U/L (24-260) TROPONIN I <0.05 ng/mL (0.00-1.5) TROPONIN REFERENCE RANGE:<0.1 NEGATIVE0.1-1.5 INDETERMINANT>1.5 POSITIVE . PROGRESS AND PROCEDURES Course of Care: IV NS Dilaudid 0.5 mg IV Ativan 0.5 mg IV Patient is stable. Symptoms better. Pt states he has had chills, he has an elevated band count and elevated PCT of 4.8. Will check CT of lumbar spine. Discussed case with on-call health care provider, (call returned 13:19 [facility] at [facility]. Reviewed images and no discitis or epidural abscess, no need for spine Sx.). Discussed case with on-call health care provider, (Dr. Trip Santos at [facility], Gen/Trauma Sx, no beds available.). Patient/family counseled. Disposition: Admitted to Acute Care. Admit decision based on need for further evaluation, monitoring and IV antibiotics. CLINICAL IMPRESSION Single deep abscess (Psoas abscess). (Electronically signed by Jake Mcghee Dr. 07/27/2016 20:41)
--- NOTE | 2016-07-27 12:17 | ED ORDER SUMMARY ---
..... Patient: MIGDALIA MAURICIO OrderSheet [facility] VisitID: [id number] [place] [address] 66y, M Registration Date/Time: 07/26/2016 ORDER SHEET Weight: 80.7 kg (stated) Allergies: No Known Drug Allergy GENERAL ORDERS: Chest 1V Urgent (:07/27/2016 Johann SIM) (Ack 1:17 SRegerond) (1:54 GUnger) Cervical Spine 2 or 3V Urgent (:07/27/2016 Johann SIM) (Ack 1:17 SRegerond) (1:54 GUnsamantha) Lumbar Spine 2 or 3V Urgent (:07/27/2016 Johann SIM) (Ack 1:17 SResantiago) (1:54 GUnsamantha) Cardiac Panel Stat (:07/27/2016 Johann SIM) (Ack 1:17 SResantiago) (1:22 LWhalen R.N.) UA-Culture if indicated Urgent (:07/27/2016 Johann SIM) (Ack 1:17 SRegerond) (3:09 CBradburn R.N.) - (need to confirm urine is in lab) (02:26 07/27/2016 Johann SIM) (2:31 SRedmond) - (cath UA) (02:53 07/27/2016 Johann SIM) (Ack 2:54 SRedmond) (2:56 RCollier R.N.) PCT (Procalcitonin) Urgent (04:10 07/27/2016 Johann SIM) (Ack 4:19 SRedmond) (6:37 RCollier R.N.) CT Lumbar Spine wo Cont Urgent (05:43 07/27/2016 Johann SIM) (Ack 5:44 SResantiago) (Cancelled: Other6:01 Johann SIM) MRI Lumbar Spine w/wo Cont (Not Applicable) Urgent (06:01 07/27/2016 Johann SIM) (Ack 6:06 SResantiago) (9:53 Tonny) Lactate, Serum Urgent (08:25 07/27/2016 Johann SIM) (Ack 8:33 JBoardley R.N.) (8:39 oerner) CRP Urgent (08:07/27/2016 Johann SIM) (Ack 8:33 JBoardley R.N.) (8:39 KHoerner) ESR Urgent (08:26 07/27/2016 Johann SIM) (Ack 8:33 JBoardley R.N.) (8:39 oerner) CT Abd/Pel w Cont (Yes) () (Possible paravertebral abscess on MRI of L spine) Urgent (11:02 07/27/2016 Sandee Oscar) (Ack 11:06 Tonny) (11:20 JBoardley R.N.) POC Glucose (12:18 07/27/2016 JBoardley R.N. per protocol) (12:18 JBoardley R.N.) POC Glucose (18:30 07/27/2016 JBoardley R.N. verbal order read back to Sandee Oscar) (18:30 JBoardley R.N.) MEDICATION ORDERS: Imipenem-Cilastatin IV 500 mg (NOW) (19:21 07/27/2016 Sandee Oscar) (Ack 19:43 RCollier R.N.) (20:25 RCollier R.N.) IV FLUIDS: IV NS : initial bolus 750 mL (1000 mL/hr), then 500 mL/hr for 3h (NOW); Routine (01:07/27/2016 Johann SIM) (Ack 1:32 RCollier R.N.) (2:17 RCollier R.N.) Dilaudid IV 0.5 mg (NOW) (01:07/27/2016 Johann SIM) (1:26 BARThalarsen R.N.) Ativan IV 0.5 mg (NOW) (:07/27/2016 Johann SIM) (1:28 LWhalen R.N.) Dilaudid IV 0.5 mg (NOW) (07:38 07/27/2016 Johann SIM) (Ack 7:40 JBoardley R.N.) (7:44 JBoardley R.N.) Ativan IV 0.5 mg (NOW) (07:39 07/27/2016 Johann SIM) (Ack 7:40 Asha R.N.) (8:57 Asha R.N.) Dilaudid IV 0.5 mg (HIGH ALERT MEDICATION, NOW) (10:50 07/27/2016 Asha R.N. verbal order read back to Sandee Oscar) (10:51 Asha R.N.) IV NS : initial bolus none -, then 200 mL/hr for X1 (NOW) (12:08 07/27/2016 Sandee Oscar) (Ack 12:12 Asha R.N.) (12:17 Natalie Moncada.N.) Dilaudid IV 0.5 mg (HIGH ALERT MEDICATION, NOW) (18:30 07/27/2016 Asha R.NCarlos A verbal order read back to Sandee Oscar) (18:30 Asha R.N.) Clindamycin IV 900 mg/50mL (NOW) (19:19 07/27/2016 Sandee Oscar) (Ack 19:43 Cristine R.N.) (19:57 Sharon R.N.) Vancomycin IV 1 gm/200mL (NOW) (19:20 07/27/2016 Sandee Oscar) (Ack 19:43 Cristine R.N.) ORDER SHEET NOTES: [Electronically signed by Jake Mcghee Dr. (20:41 07/27/2016)] [Electronically signed by Arabella Talavera R.N. (05:08 07/28/2016)] [Electronically locked/signed by Arabella Talavera R.N. (05:08 07/28/2016)]
--- NOTE | 2016-07-27 20:38 | History & Physical Report ---
Information Source Information Source: Self Reliability: Fair History Chief Complaint back pain History of Present Illness Patient is a 66 year old male that is presenting with a 8 day history of back pain. Patient had been in his usual state of health when he was doing yard work one day. Patient was pulling on a pole when he felt as if he strained his back. Patient was able to control the pain initially with ibuprofen however the pain never subsided. Patient felt as if the pain was a sharp stabbing sensation which occured in his back. Patient had occasional radiation of nerve type pain, and occasional numbness to other areas including his shoulders, thighs, and trunk. Patient continued to control the pain with ibuprofen and immobility, however when the patients pain did not improve in the slightest and in fact was becoming more aggravating did the patient decide to come to the Er. Patient had no obvious neurological deficits, and his symptoms were limited to pain and numbness. Patient has no other ocmplaints and is currently stable,. Patient History 1. Psoas abscess 2. Back pain 3. Neuropathy 4. Diabetes mellitus Social History Patient currently lives at home by himself. He does not work currently. Patient does not smoke, drink or use illicit substances. Patient manages all his ADLs independetly. Family History Family history was reviewed; no changes noted. Medications and Allergies Medications Home Medications Metformin Glipizide Current Medications Sig/Francia Start time Last Medication Dose Route Stop Time Status Admin Imipenem/Cilastatin 500 MG Q6HR 07/28 0000 UNV Sodium IV Sodium Chloride 100 ML Baclofen 5 MG TID 07/270 AC PO Insulin Human Lispro See Dose ACHS 07/27 2100 AC Insts (1) SC Hydromorphone HCl 1 MG Q3H PRN 07/27 2044 AC IV Acetaminophen 650 MG Q6H PRN 07/27 2029 AC PO Sodium Chloride 1,000 ML ASDIRECTED 07/27 2029 AC IV Dose Instructions: (1)Insulin Human Lispro: LOW DOSE: ACCUCHECK AND SLIDING SCALE >>To change sliding scale DISCONTINUE this order and enter a NEW order. Thanks< Allergies Coded Allergies: NKA (07/27/16) Allergies No Known Drug Allergy. --00:53 Ronnell Coburn, RKranthi. Review of Systems Constitutional Chills, Weakness. Denies: Fever, Sweats, Malaise, Other. Eyes Denies: Pain, Vision Change, Conjunctival Inflammation, Eyelid Inflammation, Redness, Other. ENT Denies: Ear Pain, Ear Discharge, Nose Pain, Nasal Discharge, Nasal Congestion, Mouth Pain, Mouth Swelling, Throat Pain, Throat Swelling, Other. Respiratory Denies: Cough, Dry, SOB w/exertion, Wheezing, Hemoptysis, Pleuritic Pain, Sputum , Other. Cardiovascular Denies: Chest Pain, Palpitations, Orthopnea, PND, Edema, Light-headedness, Other. Gastrointestinal Denies: Nausea, Vomiting, Abdominal Pain, Diarrhea, Constipation, Melena, Hematochezia, Other. Genitourinary Denies: Dysuria, Frequency, Incontinence, Hematuria, Retention, Other. Musculoskeletal Shoulder Pain, Arm Pain, Back Pain. Denies: Neck Pain, Hand Pain, Leg Pain, Foot Pain, Other. Skin Denies: Rash, Lesions, Jaundice, Bruising, Other. Neurological Denies: Weakness, Numbness, Incoordination, Change in speech, Confusion, Seizures, Other. Physical Exam General Appearance Alert, Oriented X3, No acute distress HEENT PERRLA, EOMI, Moist mucous membranes Lungs Clear to auscultation Neck Supple, No JVD, No thyromegaly Cardiovascular Regular rate and rhythm, Normal S1 and S2, No murmurs, gallops, rubs Abdomen Soft, No tenderness, No guarding, No masses, No hepatosplenomegaly Extremities No edema, Normal pulses, No tenderness, Strength = upper ext's, Strength = lower ext's Skin No Breakdown, No Significant Lesions Neurological Normal speech, Normal tone, No lateralizing signs, - sensations decreased in the lower extremities up to the point of the mid thigh - pain with rotation of shoulder, not isolated to any one motion - point pain at the level of L3 - unable to assess gait due to pain - cranial nerves intact Psych/Mental Status Mood normal LAB Results Laboratory Tests 07/27 07/27 07/27 07/27 0130 0130 0302 0840 Chemistry Plasma Sodium (136 - 145 mmol/L) 127 Plasma Potassium (3.5 - 5.1 mmol/L) 3.2 Plasma Chloride (98 - 107 mmol/L) 92 CO2 (Enzymatic) (21 - 32 mmol/L) 21 BUN (7 - 18 mg/dL) 34 Creatinine (0.6 - 1.3 mg/dL) 1.3 Est GFR ( Amer) (mL/min) >60 Est GFR (Non-Af Amer) (mL/min) 58.70 Glucose (70 - 110 mg/dL) 305 Plasma Calcium (8.5 - 10.1 mg/dL) 9.1 Plasma Magnesium (1.8 - 2.4 mg/dL) 1.8 Total Bilirubin (0.0 - 1.0 mg/dL) 1.0 AST (15 - 37 U/L) 15 ALT (12 - 78 U/L) 21 Alkaline Phosphatase (46 - 116 U/L) 74 Creatine Kinase (24 - 260 U/L) 31 Troponin (0.00 - 1.5 ng/mL) <0.05 C-Reactive Protein (0.0 - 0.9 mg/dL) 39.3 Total Protein (6.4 - 8.2 g/dL) 6.9 Albumin (3.3 - 5.0 g/dL) 2.4 Procalcitonin (0 - 0.5 ng/mL) 4.8 Hematology WBC (4.5 - 11.5 K/uL) 9.4 RBC (4.50 - 5.90 M/uL) 4.31 Hgb (13.5 - 17.5 gm/dL) 12.8 Hct (41.0 - 53.0 %) 37.5 MCV (80 - 100 fL) 87 MCH (26 - 34 pg) 30 RDW (11.6 - 14.8 %) 13.6 Neut % (Auto) (50 - 75 %) 55 Lymph % (Auto) (25 - 40 %) 3 [place] % (Auto) (3 - 14 %) 7 Eos % (Auto) (0 - 4 %) 0 Baso % (Auto) (0 - 2 %) 0 Band Neutrophils % (0 - 8 %) 35 Metamyelocytes % (0 - 1 %) 0 Myelocytes (0 - 1 %) 0 Other Cell Type 0 Plt Count, EDTA (150 - 400 K/uL) 174 PUBS MCHC (31 - 37 g/dL) 34 ESR Westergren (0 - 20 mm/hr) 52 Urines Urine Color YELLOW Urine Appearance CLEAR Urine pH (5.0 - 8.0) 6.0 Ur Specific [place] (1.010 - 1.030) 1.020 Urine Protein (NEGATIVE) 1+ Urine Ketones (NEGATIVE) TRACE Urine Blood (NEGATIVE) 1+ Urine Nitrite (NEGATIVE) NEGATIVE Urine Bilirubin (NEGATIVE) NEGATIVE Urine Urobilinogen (0.2 - 1.0 EU/dL) 1.0 Ur Leukocyte Esterase (NEGATIVE) NEGATIVE Urine RBC (0 - 1 rbc/hpf) 0-1 Urine WBC (0 - 1 wbc/hpf) 1-3 Ur Epithelial Cells (0 - 5 EPI/hpf) NONE SEEN Urine Bacteria (NONE SEEN) NONE SEEN Urine Glucose (NEGATIVE) 2+ Urine Comment CULT NOT INDICATED 07/27 0840 Chemistry Lactic Acid (0.4 - 2.0 mmol/L) 1.1 Assessment and Plan Problem List 1. Psoas abscess, right Plan - evidence of right psoas abscess with features of gas within abscess - pt treated with IV vancomycin, imipenim, and clindamycin - will begin imipenem 500 mg q6h - will monitor for improvement - will consult surgery 2. Back pain Plan - secondary to psoas abscess irritation - will treate with opioids and muscle relaxant - will monitor 3. Diabetes mellitus Plan - pt has an established history of diabetes mellitus - will hold glipizide and metformin - will start sliding scale coverage 4. Neuropathy Plan - pt has symptoms of neuropathy - if pain control is inadequate will add gabapentin
[2016-07-27 20:59] VITALS: BP 168/78
[2016-07-27] MEDS ORDERED: METFORMIN HCL500 MG PO (21:46)
[2016-07-27] MEDS ORDERED: GLYBURIDE1.25 MG PO (21:49)
[2016-07-27] MEDS ORDERED: AMBIEN5 MG PO (21:50)
[2016-07-27 22:57] VITALS: BP 151/72
[2016-07-28 02:10] VITALS: BP 148/72
--- NOTE | 2016-07-28 05:09 | ED MED RECONCILIATION SUMMARY ---
Patient: MIGDALIA MAURICIO Medication Reconciliation Report [facility] VisitID: [id number] [address] [place] [address] 66y, M Registration Date/Time: 07/26/2016 Weight: 80.7 kg Height/Length: 70 in. BMI: 25.5 ALLERGIES: No Known Drug Allergy The patient's Home Medications are listed below: THE FOLLOWING MEDICATIONS NEED TO BE RECONCILED: GlyBURIDE Oral MetFORMIN HCl Oral The source(s) of the original Home Medication information: Not obtained. The following Medications were given to the patient in the Emergency Department: Dilaudid [IVP] IVP 0.5 mg, administered: 07/27/2016 1:26:00 AM Ativan [IVP] IVP 0.5 mg, administered: 07/27/2016 1:28:00 AM IV NS IV Fluids bolus 750 mL over 46 minute(s), then 500 mL/hr, administered: 07/27/2016 2:14:00 AM IV NS IV Fluids bolus 0, then 500 mL/hr, administered: 07/27/2016 3:09:00 AM Dilaudid [IVP] IVP 0.5 mg, administered: 07/27/2016 7:44:00 AM Ativan [IVP] IVP 0.5 mg, administered: 07/27/2016 8:57:00 AM Dilaudid [IVP] IVP 0.5 mg, administered: 07/27/2016 10:50:00 AM IV NS IV Fluids bolus 0, then 200 mL/hr, administered: 07/27/2016 12:17:00 PM Dilaudid [IVP] IVP 0.5 mg, administered: 07/27/2016 6:30:00 PM Clindamycin [IVPB] IVPB bolus 0, then 900 mg 100 mL/hr, administered: 07/27/2016 7:57:00 PM IMIPENEM-CILASTATIN [IVPB] IVPB bolus 0, then 500 mg 200 mL/hr, administered: 07/27/2016 8:25:00 PM The following Medications were prescribed to the patient: None.
--- NOTE | 2016-07-28 05:09 | ED MAR SUMMARY ---
..... Medication Administration Record [facility] [address] [facility] [place] [address] Patient: MIGDALIA MAURICIO Visit ID: [id number] 66y, M Weight: 80.7 kg Height/Length: 70 in BMI: 25.5 ALLERGIES: No Known Drug Allergy Given 01:26 07/27/2016 Ronnell Coburn R.N. Medication Administered: DILAUDID [IVP] (HYDROMORPHONE HCL PF), Dose: 0.5 mg IVP over 1 minute(s), Site: #1 right AC. Medication Ordered: Dilaudid IV 0.5 mg (NOW). Given 01:28 07/27/2016 Ronnell Coburn R.N. Medication Administered: ATIVAN [IVP] (LORAZEPAM), Dose: 0.5 mg IVP over 1 minute(s), Site: #1 right AC. Medication Ordered: Ativan IV 0.5 mg (NOW). Start 02:14 07/27/2016 Arabella Talavera RIsmael, Stop 03:08 07/27/2016 Layla Warner R.N. Medication Administered: IV NS (SALINE), Dose: IV Fluids, Rate: 500 mL/hr, Bolus: 750 mL over 46 minute(s), Dispensed: 1000 mL bag, Site: #1 right AC. Medication Ordered: IV NS : initial bolus 750 mL (1000 mL/hr), then 500 mL/hr for 3h (NOW); Routine. Start 03:09 07/27/2016 Layla Warner RIsmael, Stop 03:44 07/27/2016 Arabella Talavera RIsmael Medication Administered: IV NS (SALINE), Dose: IV Fluids over 2 hour(s), Rate: 500 mL/hr, Dispensed: 250 mL bag, Site: #1 right AC. Medication Ordered: IV NS : initial bolus 750 mL (1000 mL/hr), then 500 mL/hr for 3h (NOW); Routine. Given 07:44 07/27/2016 Ori Stewart RIsmael Medication Administered: DILAUDID [IVP] (HYDROMORPHONE HCL PF), Dose: 0.5 mg IVP over 2 minute(s), Site: #1 right AC. Medication Ordered: Dilaudid IV 0.5 mg (NOW). Given 08:57 07/27/2016 Ori Stewart R.N. Medication Administered: ATIVAN [IVP] (LORAZEPAM), Dose: 0.5 mg IVP over 2 minute(s), Site: #1 right AC. Medication Ordered: Ativan IV 0.5 mg (NOW). Given 10:50 07/27/2016 Ori Stewart R.N. Medication Administered: DILAUDID [IVP] (HYDROMORPHONE HCL PF), Dose: 0.5 mg IVP over 2 minute(s), Site: #1 right AC. Medication Ordered: Dilaudid IV 0.5 mg (HIGH ALERT MEDICATION, NOW). Start 12:17 07/27/2016 Smiley Olivas R.N. Medication Administered: IV NS (SALINE), Dose: IV Fluids over 5 hour(s), Rate: 200 mL/hr, Dispensed: 1000 mL bag, Site: #1 right AC. Medication Ordered: IV NS : initial bolus none -, then 200 mL/hr for X1 (NOW). Given 18:30 07/27/2016 Ori Stewart R.N. Medication Administered: DILAUDID [IVP] (HYDROMORPHONE HCL PF), Dose: 0.5 mg IVP over 2 minute(s), Site: #1 right AC. Medication Ordered: Dilaudid IV 0.5 mg (HIGH ALERT MEDICATION, NOW). Start 19:57 07/27/2016 Casey Dia RCarlos ANCarlos A, Stop 20:25 07/27/2016 Arabella Talavera RIsmael Medication Administered: CLINDAMYCIN [IVPB], Dose: 900 mg IVPB, Rate: 100 mL/hr, Dispensed: 50 mL bag, Site: #1 right AC. Medication Ordered: Clindamycin IV 900 mg/50mL (NOW). Start 20:25 07/27/2016 Arabella Talavera R.N., Continued Upon Disposition 20:44 07/27/2016 Arabella Talavera R.N. Medication Administered: IMIPENEM-CILASTATIN [IVPB], Dose: 500 mg IVPB over 30 minute(s), Rate: 200 mL/hr, Dispensed: 100 mL bag, Site: #1 right AC. Medication Ordered: Imipenem-Cilastatin IV 500 mg (NOW).
--- NOTE | 2016-07-28 05:09 | ED DISCHARGE INSTRUCTIONS ---
Patient: HANG MIGDALIA Moncada General Instructions [facility] VisitID: [id number] [address] [place] [address] 66y, M Registration Date/Time: 07/26/2016 Single deep abscess (Psoas abscess). (Electronically signed by Jake Mcghee Dr. 07/27/2016 20:41)
--- NOTE | 2016-07-28 05:09 | ED DISCHARGE INSTRUCTIONS ---
Patient: HANG MIGDALIA Moncada General Instructions [facility] VisitID: [id number] [address] [place] [address] 66y, M Registration Date/Time: 07/26/2016 Single deep abscess (Psoas abscess). (Electronically signed by Jake Mcghee Dr. 07/27/2016 20:41)
--- NOTE | 2016-07-28 05:09 | ED MED RECONCILIATION SUMMARY ---
Patient: MIGDALIA MAURICIO Medication Reconciliation Report [facility] VisitID: [id number] [address] [place] [address] 66y, M Registration Date/Time: 07/26/2016 Weight: 80.7 kg Height/Length: 70 in. BMI: 25.5 ALLERGIES: No Known Drug Allergy The patient's Home Medications are listed below: THE FOLLOWING MEDICATIONS NEED TO BE RECONCILED: GlyBURIDE Oral MetFORMIN HCl Oral The source(s) of the original Home Medication information: Not obtained. The following Medications were given to the patient in the Emergency Department: Dilaudid [IVP] IVP 0.5 mg, administered: 07/27/2016 1:26:00 AM Ativan [IVP] IVP 0.5 mg, administered: 07/27/2016 1:28:00 AM IV NS IV Fluids bolus 750 mL over 46 minute(s), then 500 mL/hr, administered: 07/27/2016 2:14:00 AM IV NS IV Fluids bolus 0, then 500 mL/hr, administered: 07/27/2016 3:09:00 AM Dilaudid [IVP] IVP 0.5 mg, administered: 07/27/2016 7:44:00 AM Ativan [IVP] IVP 0.5 mg, administered: 07/27/2016 8:57:00 AM Dilaudid [IVP] IVP 0.5 mg, administered: 07/27/2016 10:50:00 AM IV NS IV Fluids bolus 0, then 200 mL/hr, administered: 07/27/2016 12:17:00 PM Dilaudid [IVP] IVP 0.5 mg, administered: 07/27/2016 6:30:00 PM Clindamycin [IVPB] IVPB bolus 0, then 900 mg 100 mL/hr, administered: 07/27/2016 7:57:00 PM IMIPENEM-CILASTATIN [IVPB] IVPB bolus 0, then 500 mg 200 mL/hr, administered: 07/27/2016 8:25:00 PM The following Medications were prescribed to the patient: None.
--- NOTE | 2016-07-28 05:09 | ED MAR SUMMARY ---
..... Medication Administration Record [facility] [address] [facility] [place] [address] Patient: MIGDALIA MAURICIO Visit ID: [id number] 66y, M Weight: 80.7 kg Height/Length: 70 in BMI: 25.5 ALLERGIES: No Known Drug Allergy Given 01:26 07/27/2016 Ronnell Coburn R.N. Medication Administered: DILAUDID [IVP] (HYDROMORPHONE HCL PF), Dose: 0.5 mg IVP over 1 minute(s), Site: #1 right AC. Medication Ordered: Dilaudid IV 0.5 mg (NOW). Given 01:28 07/27/2016 Ronnell Coburn R.N. Medication Administered: ATIVAN [IVP] (LORAZEPAM), Dose: 0.5 mg IVP over 1 minute(s), Site: #1 right AC. Medication Ordered: Ativan IV 0.5 mg (NOW). Start 02:14 07/27/2016 Arabella Talavera RIsmael, Stop 03:08 07/27/2016 Layla Warner R.N. Medication Administered: IV NS (SALINE), Dose: IV Fluids, Rate: 500 mL/hr, Bolus: 750 mL over 46 minute(s), Dispensed: 1000 mL bag, Site: #1 right AC. Medication Ordered: IV NS : initial bolus 750 mL (1000 mL/hr), then 500 mL/hr for 3h (NOW); Routine. Start 03:09 07/27/2016 Layla Warner RIsmael, Stop 03:44 07/27/2016 Arabella Talavera RIsmael Medication Administered: IV NS (SALINE), Dose: IV Fluids over 2 hour(s), Rate: 500 mL/hr, Dispensed: 250 mL bag, Site: #1 right AC. Medication Ordered: IV NS : initial bolus 750 mL (1000 mL/hr), then 500 mL/hr for 3h (NOW); Routine. Given 07:44 07/27/2016 Ori Stewart RIsmael Medication Administered: DILAUDID [IVP] (HYDROMORPHONE HCL PF), Dose: 0.5 mg IVP over 2 minute(s), Site: #1 right AC. Medication Ordered: Dilaudid IV 0.5 mg (NOW). Given 08:57 07/27/2016 Ori Stewart R.N. Medication Administered: ATIVAN [IVP] (LORAZEPAM), Dose: 0.5 mg IVP over 2 minute(s), Site: #1 right AC. Medication Ordered: Ativan IV 0.5 mg (NOW). Given 10:50 07/27/2016 Ori Stewart R.N. Medication Administered: DILAUDID [IVP] (HYDROMORPHONE HCL PF), Dose: 0.5 mg IVP over 2 minute(s), Site: #1 right AC. Medication Ordered: Dilaudid IV 0.5 mg (HIGH ALERT MEDICATION, NOW). Start 12:17 07/27/2016 Smiley Olivas R.N. Medication Administered: IV NS (SALINE), Dose: IV Fluids over 5 hour(s), Rate: 200 mL/hr, Dispensed: 1000 mL bag, Site: #1 right AC. Medication Ordered: IV NS : initial bolus none -, then 200 mL/hr for X1 (NOW). Given 18:30 07/27/2016 Ori Stewart R.N. Medication Administered: DILAUDID [IVP] (HYDROMORPHONE HCL PF), Dose: 0.5 mg IVP over 2 minute(s), Site: #1 right AC. Medication Ordered: Dilaudid IV 0.5 mg (HIGH ALERT MEDICATION, NOW). Start 19:57 07/27/2016 Casey Dia RCarlos ANCarlos A, Stop 20:25 07/27/2016 Arabella Talavera RIsmael Medication Administered: CLINDAMYCIN [IVPB], Dose: 900 mg IVPB, Rate: 100 mL/hr, Dispensed: 50 mL bag, Site: #1 right AC. Medication Ordered: Clindamycin IV 900 mg/50mL (NOW). Start 20:25 07/27/2016 Arabella Talavera R.N., Continued Upon Disposition 20:44 07/27/2016 rAabella Talavera R.N. Medication Administered: IMIPENEM-CILASTATIN [IVPB], Dose: 500 mg IVPB over 30 minute(s), Rate: 200 mL/hr, Dispensed: 100 mL bag, Site: #1 right AC. Medication Ordered: Imipenem-Cilastatin IV 500 mg (NOW).
[2016-07-28 07:00] VITALS: BP 114/70
--- NOTE | 2016-07-28 08:23 | Progress Note ---
Subjective General Patient is a 66 year old male that is presenting with a 8 day history of back pain. Patient had been in his usual state of health when he was doing yard work one day. Patient was pulling on a pole when he felt as if he strained his back. Patient was able to control the pain initially with ibuprofen however the pain never subsided. Patient felt as if the pain was a sharp stabbing sensation which occured in his back. Patient had occasional radiation of nerve type pain, and occasional numbness to other areas including his shoulders, thighs, and trunk. Subjective Patient today was seen at bedside. Abscess formation noted in the psoas group. On the right. Patient has limited mobility in the lower extremity and lower spine. Continue the antibiotics. MRSA coverage with that. Vancomycin along with broad-spectrum with the imipenem Patient states that he is doing about what he spent doing. Patient having decent appetite. Physical Exam Vital Signs / I&Os Vital Signs Date Time Temp Pulse Resp B/P Pulse O2 O2 Flow FiO2 Ox Delivery Rate 07/28 0805 2.0 07/28 0700 97.7 88 20 114/70 97 Room Air 07/28 0210 97.9 101 18 148/72 94 Room Air 07/27 2257 98.8 107 16 151/72 96 Room Air 07/27 2059 99.1 107 20 168/78 96 I&O 07/27 0800 07/27 1600 07/28 0000 Intake Total Output Total Balance General Appearance Oriented X3, Cooperative HEENT PERRLA, Moist mucous membranes Lungs Normal air movement Cardiovascular Normal S1 and S2 Abdomen tenderness in the lower quadrant, No rebound, nondistended Extremities Limited mobility in both lower extremity. movements slowed and guarded. Psych/Mental Status Mood normal LAB Results Laboratory Tests 07/27 07/27 07/28 0840 0840 0525 Chemistry Plasma Sodium (136 - 145 mmol/L) 130 Plasma Potassium (3.5 - 5.1 mmol/L) 3.7 Plasma Chloride (98 - 107 mmol/L) 97 CO2 (Enzymatic) (21 - 32 mmol/L) 22 BUN (7 - 18 mg/dL) 27 Creatinine (0.6 - 1.3 mg/dL) 1.1 Est GFR ( Amer) (mL/min) >60 Est GFR (Non-Af Amer) (mL/min) >60 Glucose (70 - 110 mg/dL) 253 Lactic Acid (0.4 - 2.0 mmol/L) 1.1 Plasma Calcium (8.5 - 10.1 mg/dL) 7.8 Plasma Magnesium (1.8 - 2.4 mg/dL) 1.8 Total Bilirubin (0.0 - 1.0 mg/dL) 0.9 AST (15 - 37 U/L) 18 ALT (12 - 78 U/L) 16 Alkaline Phosphatase (46 - 116 U/L) 63 C-Reactive Protein (0.0 - 0.9 mg/dL) 39.3 Total Protein (6.4 - 8.2 g/dL) 5.0 Albumin (3.3 - 5.0 g/dL) 1.7 Hematology WBC (4.5 - 11.5 K/uL) 15.3 RBC (4.50 - 5.90 M/uL) 3.66 Hgb (13.5 - 17.5 gm/dL) 10.9 Hct (41.0 - 53.0 %) 32.3 MCV (80 - 100 fL) 88 MCH (26 - 34 pg) 30 RDW (11.6 - 14.8 %) 14.4 Neut % (Auto) (50 - 75 %) Pending Lymph % (Auto) (25 - 40 %) Pending [place] % (Auto) (3 - 14 %) Pending Band Neutrophils % (0 - 8 %) Pending Plt Count, EDTA (150 - 400 K/uL) 192 PUBS MCHC (31 - 37 g/dL) 34 ESR Westergren (0 - 20 mm/hr) 52 Microbiology Date/Time Procedure - Status Source Growth 07/28 0000 MRSA Screen - RECD NASAL Assessment and Plan Problem List 1. Psoas abscess, right Plan right psoas abscess with features of gas within abscess IV vancomycin continued imipenim, shows MRSA positive Surgery consulted 2. Back pain Plan The patient has reflection of disease process. 3. Neuropathy Plan A neuropathic type pain. This neuropathy is related to the close proximity of the plexus in the psoas Discussed options of getting patient up and out of bed, slow conditioning. Monitor the blood sugars approach therapy from a moderate standpoint. 4. Diabetes mellitus Plan Before meals, at bedtime sugar monitoring. Patient is on a moderate load of insulin to cover blood sugar. E&M Codes Rounding: Inpt-High/[id number]
[2016-07-28 10:00] VITALS: BP 127/69
[2016-07-28 14:35] VITALS: BP 150/70
[2016-07-28 18:58] VITALS: BP 158/78
[2016-07-28 22:17] VITALS: BP 150/71
[2016-07-29 02:23] VITALS: BP 132/61
[2016-07-29 06:53] VITALS: BP 115/62
--- NOTE | 2016-07-29 07:19 | Progress Note ---
Subjective General Note Date: July 29, 2016 Admission Date: July 28, 2016 Hospital Day: 2 PCP: MEDARDO Status: Inpatient AC Advanced Directive: FULL CODE Room: 304 Patient is a 66 year old male that is presenting with a 8 day history of back pain. Patient had been in his usual state of health when he was doing yard work one day. Patient was pulling on a pole when he felt as if he strained his back. Patient was able to control the pain initially with ibuprofen however the pain never subsided. Patient felt as if the pain was a sharp stabbing sensation which occured in his back. Patient had occasional radiation of nerve type pain, and occasional numbness to other areas including his shoulders, thighs, and trunk. Subjective Patient today was seen at bedside. Patient has an abscess on the right psoas with appreciated. Air in the tissue. Continue with the antibiotic therapeutics. Patient was slowly progress his activity level. She states that he's had decent appetite. Patient has not had any other concerns. No shortness of breath. No heart palpitations. Patient continues complaining of a lower lumbar spinal pain. Patient has nerve pain in the lower extremitie. Patient needs None Physical Exam Vital Signs / I&Os Vital Signs Date Time Temp Pulse Resp B/P Pulse O2 O2 Flow FiO2 Ox Delivery Rate 07/29 0653 97.5 73 115/62 96 Room Air 0.0 07/29 0223 98.2 85 15 132/61 98 Room Air 0.0 07/28 2217 98.1 95 18 150/71 97 Room Air 0.0 07/28 1858 98.4 80 18 158/78 99 Room Air 0.0 07/28 1435 99.5 104 20 150/70 100 Room Air 0.0 07/28 1000 97.7 89 20 127/69 96 Room Air 0.0 07/28 0805 2.0 I&O 07/28 0800 07/28 1600 07/29 0000 Intake Total 1838 2347 1460 Output Total 1150 900 Balance 1838 1197 560 General Appearance Oriented X3, Cooperative Lungs Clear to auscultation Neck Supple, No JVD Abdomen No tenderness, No guarding Extremities manipulation of the lower extremity without significant pain. Patient's bilateral hips were put into flexion with adduction and abduction. Patient did not express considerable pain during the activity Skin No Breakdown Psych/Mental Status Mental status normal, Mood normal Assessment and Plan Problem List 1. Psoas abscess, right Plan No changes in antibiotic therapy. We'll continue with the imipenem and the vancomycin. Continue to progress to normalcy. Followed by general surgery 2. Back pain Plan Chronic lower back pain progressively worsened by recent Episode. Abscess formation in the right psoas. Physical therapy and general movement exercises to improve on pain control. 3. Neuropathy Plan Neuropathic pain secondary to the close proximity to this. This was discussed in its probable that once the infection is abated. The neuro conductance will be significantly influence. 4. Diabetes mellitus Plan The moderate dose of the insulin support. Patient's sugars have been running in the high 100s to low 200s. Current status: fair. Anticipated discharge date: 1-2 days Anticipated discharge placement: Patient care time: Time spent in chart review, patient interview, physical exam, CPOE, and care documentation: 25 minutes Visit to patient today: 1 Complexity of care: Moderate. E&M Codes Rounding: Inpt-Moderate/[id number]
[2016-07-29 10:36] VITALS: BP 144/74
[2016-07-29 14:36] VITALS: BP 148/74
[2016-07-29] MEDS ORDERED: ZYRTEC ALLERGY10 MG PO (15:57)
[2016-07-29] MEDS ORDERED: GLIPIZIDE5 MG PO (15:57)
[2016-07-29] MEDS ORDERED: METFORMIN HCL1000 M1 PO (15:58)
[2016-07-29] MEDS ORDERED: VIAGRA100 MG PO (15:59)
[2016-07-29] MEDS ORDERED: AMBIEN5 MG PO (16:00)
[2016-07-29] MEDS ORDERED: EFFEXOR25 MG PO (16:00)
[2016-07-29] MEDS ORDERED: LOTRIMIN AF1 % TOP (16:04)
[2016-07-29] MEDS ORDERED: ANTIPYRINE/BENZOCAIN OT (16:04)
[2016-07-29 19:17] VITALS: BP 179/81
[2016-07-29 22:28] VITALS: BP 131/62
[2016-07-30 02:13] VITALS: BP 131/66
--- NOTE | 2016-07-30 06:56 | Progress Note ---
Subjective General Note Date: July 30, 2016 Admission Date: July 28, 2016 Hospital Day: 3 PCP: MEDARDO Status: Inpatient AC Advanced Directive: FULL CODE Room: 304 Patient is a 66 year old male that is presenting with a 8 day history of back pain. Patient had been in his usual state of health when he was doing yard work one day. Patient was pulling on a pole when he felt as if he strained his back. Patient was able to control the pain initially with ibuprofen however the pain never subsided. Patient felt as if the pain was a sharp stabbing sensation which occured in his back. Patient had occasional radiation of nerve type pain, and occasional numbness to other areas including his shoulders, thighs, and trunk. Subjective: Patient seen at bedside. Patient sleeping soundly and snoring. Patient arousable. Patient's cousin Yaa is at Bed Side. Patient taking steps, walking avoiding quick movements. Appetite has been adequate. Blood sugars are being monitored Patient needs None Physical Exam Vital Signs / I&Os Vital Signs Date Time Temp Pulse Resp B/P Pulse O2 O2 Flow FiO2 Ox Delivery Rate 07/30 0213 98.2 72 16 131/66 98 Room Air 07/29 2228 98.4 88 16 131/62 93 Room Air 07/29 1933 Room Air 07/29 1917 99.0 108 16 179/81 100 07/29 1436 98.2 89 20 148/74 100 07/29 1037 92 96 Room Air 0.0 07/29 1036 97.7 46 24 144/74 96 0.0 07/29 0852 Room Air I&O 07/29 0800 07/29 1600 07/30 0000 Intake Total 2725 2798 Output Total 475 1725 Balance 2250 1073 General Appearance No acute distress, sleeping soundly Lungs Normal air movement Cardiovascular Normal S1 and S2, No murmurs, gallops, rubs Abdomen Normal bowel sounds, Soft, No guarding, No rebound Extremities strength is limited in the lower extremities. Psoas abscess has been found on imaging on the right LAB Results Laboratory Tests 07/30 0515 Chemistry Plasma Sodium (136 - 145 mmol/L) 134 Plasma Potassium (3.5 - 5.1 mmol/L) 4.1 Plasma Chloride (98 - 107 mmol/L) 100 CO2 (Enzymatic) (21 - 32 mmol/L) 21 BUN (7 - 18 mg/dL) 21 Creatinine (0.6 - 1.3 mg/dL) 1.0 Est GFR ( Amer) (mL/min) >60 Est GFR (Non-Af Amer) (mL/min) >60 Glucose (70 - 110 mg/dL) 209 Plasma Calcium (8.5 - 10.1 mg/dL) 7.2 Total Bilirubin (0.0 - 1.0 mg/dL) 1.1 AST (15 - 37 U/L) 20 ALT (12 - 78 U/L) 17 Alkaline Phosphatase (46 - 116 U/L) 82 Total Protein (6.4 - 8.2 g/dL) 5.0 Albumin (3.3 - 5.0 g/dL) 1.6 Hematology WBC (4.5 - 11.5 K/uL) 19.9 RBC (4.50 - 5.90 M/uL) 3.64 Hgb (13.5 - 17.5 gm/dL) 10.8 Hct (41.0 - 53.0 %) 32.0 MCV (80 - 100 fL) 88 MCH (26 - 34 pg) 30 RDW (11.6 - 14.8 %) 14.9 Neut % (Auto) (50 - 75 %) 71 Lymph % (Auto) (25 - 40 %) 4 [place] % (Auto) (3 - 14 %) 4 Eos % (Auto) (0 - 4 %) 0 Baso % (Auto) (0 - 2 %) 0 Band Neutrophils % (0 - 8 %) 21 Metamyelocytes % (0 - 1 %) 0 Myelocytes (0 - 1 %) 0 Other Cell Type 0 Plt Count, EDTA (150 - 400 K/uL) 337 PUBS MCHC (31 - 37 g/dL) 34 Imaging Radiological features of abscess formation shown extending from spine bilaterally to the right. Consider further imaging to document improvement. Assessment and Plan Problem List 1. Psoas abscess, right Plan Psoas abscess seen on the right. This is an extension from a paraspinal abscess seen bilaterally on imaging on during admission; no sign of discitis. Pathogenesis not been identified. Patient is on 2 antibiotics including vancomycin and imipenem. Cultures of all been negative. Consider consultation with ID. Review of the findings with General surgery. 2. Back pain Plan Back pain secondary to abscess formation at L1. The development in the right psoas group. No identified pathogen at this time 3. Neuropathy Plan Neuropathic pain may be consideration given the infection, abscess formation and this L1 spinal region. Patient has weakness but is able to ambulate. Abscess formation of the right psoas limits movement in the right thigh. 4. Diabetes mellitus Plan Continue to monitor blood sugars. Maintain sugars between 120-160. Moderate dose insulin schedule. Current status: poor Anticipated discharge date: 1-2 days Anticipated discharge placement: Unlikely Patient care time: Time spent in chart review, patient interview, physical exam, CPOE, and care documentation: 25 minutes Visit to patient today: 2 Complexity of care: Moderate to severe E&M Codes Rounding: Inpt-High/[id number]
[2016-07-30 07:00] VITALS: BP 139/60
[2016-07-30 10:06] VITALS: BP 157/72
[2016-07-30 14:33] VITALS: BP 168/76
--- NOTE | 2016-07-30 15:55 | DIAGNOSTIC IMAGING REPORT ---
PROCEDURE: ABDOMEN/PELVIS WITH CONTRAST CLINICAL INDICATION: repeat for comparison of initial film; review therapy respon TECHNIQUE: 125 ml of Isovue 300 were injected intravenously and axial images were obtained of the abdomen and pelvis with sagittal and coronal reformations. COMPARISON: 07/27/2016 CT and MRI lumbar spine FINDINGS: ABDOMEN: Interval development of small bilateral pleural effusions and moderate atelectatic change. There is at least one, potentially to small gallstones in the gallbladder neck. Small peripherally enhancing fluid collections in the ventral aspect of each psoas muscle have become slightly more defined, the left has lost its intrinsic gas, but are fairly stable in size. The right measures 3.8 cm in length and the left measures 3.0 cm in length. Adrenal glands, pancreas, kidneys, spleen, retroperitoneal vessels, and ureters appear normal. Nonenlarged retroperitoneal lymph nodes are present. The stomach is filled with ingested material. Moderate retained solid stool. Normal small bowel. PELVIS: The appendix and pelvic small bowel loops are normal. Diverticulosis of the sigmoid colon. No acute diverticulitis. Mildly enlarged prostate gland. Normal urinary bladder and pelvic vessels. Mildly prominent bilateral inguinal lymph nodes. No free fluid. Multilevel disc height loss throughout the lumbar spine. IMPRESSION: 1. Fairly stable appearance to bilateral intramuscular psoas abscesses. 2. Interval development of small bilateral pleural effusions and moderate bibasilar atelectasis. 3. Cholelithiasis. 4. Sigmoid diverticulosis. 5. Mild prostatomegaly. 6. Discussed with Dr. Watts. All CT scans at this facility use dose modulation, iterative reconstruction, and/or weight-based dosing when appropriate to reduce radiation dose to as low as reasonably achievable.
[2016-07-30 18:03] VITALS: BP 151/73
[2016-07-30 22:22] VITALS: BP 142/61
[2016-07-31 02:09] VITALS: BP 149/71
[2016-07-31 06:40] VITALS: BP 151/69
--- NOTE | 2016-07-31 06:53 | Progress Note ---
Subjective General Note Date: July 31, 2016 Admission Date: July 28, 2016 Hospital Day: 4 PCP: MEDARDO Status: Inpatient AC Advanced Directive: FULL CODE Room: 304 Patient is a 66 year old male that is presenting with a 8 day history of back pain. Patient had been in his usual state of health when he was doing yard work one day. Patient was pulling on a pole when he felt as if he strained his back. Patient was able to control the pain initially with ibuprofen however the pain never subsided. Patient felt as if the pain was a sharp stabbing sensation which occured in his back. Patient had occasional radiation of nerve type pain, and occasional numbness to other areas including his shoulders, thighs, and trunk. Patient was admitted with abscess formation in the right psoas and paraspinal abscess at L1 without signs of discitis. This is consistent with emergency department evaluation. Patient was admitted to Dr. Nabeel Howell. Subjective: Patient today reports that he is feeling better than yesterday. Patient is awake, alert, smiling. Patient's had no fevers , benign. Labs were done. Cultures were drawn. Patient had repeat CT imaging of the abdominal and pelvic region. Results are showing persistent signs of abscess in the right psoas and L1 paraspinal region. The urine is negative for UTI. The infection has not worsened. Patient needs Patient is requesting physical therapy to help stretch in the lower extremity Physical Exam Vital Signs / I&Os Vital Signs Date Time Temp Pulse Resp B/P Pulse O2 O2 Flow FiO2 Ox Delivery Rate 07/31 0640 98.2 86 20 151/69 100 Room Air 0.0 07/31 0209 98.1 84 18 149/71 100 Room Air 07/30 2222 98.2 74 18 142/61 99 Room Air 07/30 2057 Room Air 07/30 1803 98.1 100 20 151/73 98 Room Air 07/30 1433 97.9 85 20 168/76 98 Room Air 07/30 1006 97.3 96 20 157/72 95 Room Air 0.0 07/30 0837 Room Air 07/30 0700 97.7 72 16 139/60 99 Room Air 0.0 I&O 07/30 0800 07/30 1600 07/31 0000 Intake Total 675 680 490 Output Total 1500 950 575 Balance -825 -270 -85 General Appearance Oriented X3, Cooperative, No acute distress Lungs Clear to auscultation Neck Supple, No JVD, No thyromegaly Cardiovascular Regular rate and rhythm, Normal S1 and S2 Extremities No cyanosis, No clubbing Psych/Mental Status Mental status normal LAB Results Laboratory Tests 07/30 07/30 07/31 1130 2330 0555 Chemistry Plasma Sodium (136 - 145 mmol/L) 134 Plasma Potassium (3.5 - 5.1 mmol/L) 3.7 Plasma Chloride (98 - 107 mmol/L) 99 CO2 (Enzymatic) (21 - 32 mmol/L) 24 BUN (7 - 18 mg/dL) 19 Creatinine (0.6 - 1.3 mg/dL) 0.9 Est GFR ( Amer) (mL/min) >60 Est GFR (Non-Af Amer) (mL/min) >60 Glucose (70 - 110 mg/dL) 163 Plasma Calcium (8.5 - 10.1 mg/dL) 8.1 Plasma Magnesium (1.8 - 2.4 mg/dL) 1.8 Total Bilirubin (0.0 - 1.0 mg/dL) 0.9 AST (15 - 37 U/L) 21 ALT (12 - 78 U/L) 20 Alkaline Phosphatase (46 - 116 U/L) 87 Total Protein (6.4 - 8.2 g/dL) 5.6 Albumin (3.3 - 5.0 g/dL) 1.5 Hematology WBC (4.5 - 11.5 K/uL) 15.9 RBC (4.50 - 5.90 M/uL) 3.62 Hgb (13.5 - 17.5 gm/dL) 10.7 Hct (41.0 - 53.0 %) 31.9 MCV (80 - 100 fL) 88 MCH (26 - 34 pg) 30 RDW (11.6 - 14.8 %) 15.1 Neut % (Auto) (50 - 75 %) 87.0 Lymph % (Auto) (25 - 40 %) 6.1 [place] % (Auto) (3 - 14 %) 4.7 Eos % (Auto) (0 - 4 %) 2.2 Baso % (Auto) (0 - 2 %) 0 Plt Count, EDTA (150 - 400 K/uL) 399 PUBS MCHC (31 - 37 g/dL) 34 Toxicology Vancomycin Trough (10.0 - 20.0 ug/mL) 11.9 Urine Opiates Screen (NEGATIVE) POSITIVE Urine Methadone Screen (NEGATIVE) NEGATIVE Ur Barbiturates Screen (NEGATIVE) NEGATIVE U Amphetamin/Meth Scrn (NEGATIVE) NEGATIVE MDMA (Ecstasy) Screen (NEGATIVE) NEGATIVE U Benzodiazepines Scrn (NEGATIVE) NEGATIVE Urine Cocaine Screen (NEGATIVE) NEGATIVE U Cannabinoids Screen (NEGATIVE) POSITIVE Urines Urine Color YELLOW Urine Appearance CLEAR Urine pH (5.0 - 8.0) 6.0 Ur Specific Burt (1.010 - 1.030) 1.010 Urine Protein (NEGATIVE) NEGATIVE Urine Ketones (NEGATIVE) NEGATIVE Urine Blood (NEGATIVE) NEGATIVE Urine Nitrite (NEGATIVE) NEGATIVE Urine Bilirubin (NEGATIVE) NEGATIVE Urine Urobilinogen (0.2 - 1.0 EU/dL) 2.0 Ur Leukocyte Esterase (NEGATIVE) NEGATIVE Urine RBC (0 - 1 rbc/hpf) 0-1 Urine WBC (0 - 1 wbc/hpf) 0-1 Ur Epithelial Cells (0 - 5 EPI/hpf) 0-1 Urine Bacteria (NONE SEEN) NONE SEEN Urine Glucose (NEGATIVE) TRACE Urine Comment CULT NOT INDICATED Microbiology Date/Time Procedure - Status Source Growth 07/30 1650 Blood Culture - RECD BLOOD 07/30 1640 Blood Culture - RECD BLOOD Imaging CT abdomen, pelvis. 07/30/2016 IMPRESSION: 1. Fairly stable appearance to bilateral intramuscular psoas abscesses. 2. Interval development of small bilateral pleural effusions and moderate bibasilar atelectasis. 3. Cholelithiasis. 4. Sigmoid diverticulosis. 5. Mild prostatomegaly. Assessment and Plan Problem List 1. Psoas abscess, right Plan Appears to be a bilateral so, as abscess, right greater than left. Repeat imaging of the abdomen and pelvis with contrast showed that the lesions have been stabilized. There is signs of diverticulosis in the sigmoid. There is also times a day. Bilateral pleural effusion with bilateral moderate atelectasis. Antibiotics including the vancomycin and imipenem. Cultures repeated on 11/29/2016. Called [facility] ID to discuss the case, but waiting for return call back from Dr. Sung. The UA was negative Echocardiogram ordered 2. Back pain Plan Back pain is persistent, but seems to be a little bit better. Movements should not be excessive. Light physical therapy can be implemented. 3. Neuropathy Plan Neuropathic pain as a consequence of degenerative joint disease leading to structural occlusion of the exiting nerve roots. However, undetermined involvement of the exiting plexus and level of irritation on the abscess formation. Monitor. Gabapentin for pain control. 4. Diabetes mellitus Plan Blood sugars appear to be in better control. Patient is on a moderate controlling insulin sliding scale. Diabetic diet E&M Codes Rounding: Inpt-Moderate/[id number]
[2016-07-31 10:46] VITALS: BP 175/73
[2016-07-31 13:40] VITALS: BP 160/82
[2016-07-31 18:41] VITALS: BP 167/72
[2016-07-31 23:09] VITALS: BP 160/73
[2016-08-01 02:30] VITALS: BP 146/71
--- NOTE | 2016-08-01 07:17 | Progress Note ---
Subjective General Note Date: August 01, 2016 Admission Date: July 28, 2016 Hospital Day: 5 [facility] Status: Inpatient AC Advanced Directive: FULL CODE Room: 304 Patient is a 66 year old male that is presenting with a 8 day history of back pain. Patient had been in his usual state of health when he was doing yard work one day. Patient was pulling on a pole when he felt as if he strained his back. Patient was able to control the pain initially with ibuprofen however the pain never subsided. Patient felt as if the pain was a sharp stabbing sensation which occured in his back. Patient had occasional radiation of nerve type pain, and occasional numbness to other areas including his shoulders, thighs, and trunk. Patient was admitted with abscess formation in the right psoas and paraspinal abscess at L1 without signs of discitis. This is consistent with emergency department evaluation. Patient was admitted to Dr. Nabeel Howell. Subjective: This patient reports that he is notably improved. Patient states that he's had less pain and lower back. Patient is able to move without considerable pain. Patient does report a right left shoulder pain, neck pain. Patient is having increasing neck pain recently. Discussed the options of care with Dr. Kenney [facility] with [facility] yesterday. Dr. Sung recommended the patient remain on antibiotics for at least 2 more weeks. developing erythematous changes over the dorsum of the left foot. Patient has multiple areas of ulceration at the plantar surface of both feet. Patient states that he has been taken a knife to the bottom of the feet to remove the calluses. Patient needs Constitutional Weakness. Respiratory Denies: SOB w/exertion. Cardiovascular Denies: Palpitations, Orthopnea. Skin Rash, Other. Physical Exam Vital Signs / I&Os Vital Signs Date Time Temp Pulse Resp B/P Pulse O2 O2 Flow FiO2 Ox Delivery Rate 08/01 0230 98.1 90 18 146/71 99 Room Air 07/31 2309 99.1 98 16 160/73 95 Room Air 07/31 1841 98.6 100 20 167/72 99 Room Air 07/31 1340 98.1 89 20 160/82 99 Room Air 0.0 07/31 1046 99.0 96 22 175/73 99 Room Air 07/31 0744 Room Air I&O 07/31 0800 07/31 1600 08/01 0000 Intake Total 500 1640 1118 Output Total 1475 1300 695 Balance -975 340 423 General Appearance Oriented X3, Cooperative HEENT EOMI Lungs Clear to auscultation Cardiovascular Regular rate and rhythm, Normal S1 and S2 Abdomen Normal bowel sounds, Soft Psych/Mental Status Mental status normal, Mood normal Assessment and Plan Problem List 1. Psoas abscess, right Plan Bilateral psoas abscess. This is been appropriately cover this time her antibiotics. Patient did have opiates in his drug screen but denies drug use. Reports that he used a morphine tablet from a friend of his. Patient however has been actively cutting on his feet to reduce the callus size. Patient at times will break the skin. Patient's MRSA nasal swab was negative on admission. Source of infection is unclear at this time. Spoke to Dr. Kenney infectious disease with [facility]. He's made recommendations for the patient to remain on an antibiotic. It may be appropriate for patient be transferred to home or facility for an infusion. Maybe patient should be transferred to [place] with capability of his antibiotics. May consider narrowing to single agent, vancomycin and stop in the emergency. She now has some erythematous changes and ulcerations in the feet bilaterally. The erythema is more notable on the left dorsum of the foot. 2. Back pain Plan Back pain is subsiding. The patient is not feeling as painful as he did. This may be an indication patient is being treated appropriately. Consider a physical therapy assessment. 3. Neuropathy Plan Patient has better neuropathic pain control. Neuro structure and tone is improved. 4. Diabetes mellitus Plan Not as well-controlled on current short acting insulins. We'll plan to start on Lantus 5 units daily. Continue with a short acting coverage for mealtime. Current status: Fair, unstable Anticipated discharge date: Anticipated discharge Anticipated discharge placement: Home Patient care time: Time spent in chart review, patient interview, physical exam, CPOE, and care documentation: 35 minutes Visit to patient today: 1 Complexity of care: High DVT prophylaxis: GI prophylaxis: E&M Codes Rounding: Inpt-High/[id number]
[2016-08-01 08:05] VITALS: BP 150/77
[2016-08-01 11:10] VITALS: BP 163/78
[2016-08-01 18:22] VITALS: BP 172/71
[2016-08-01 22:26] VITALS: BP 151/69
[2016-08-02 02:11] VITALS: BP 173/77
[2016-08-02 06:47] VITALS: BP 165/67
--- NOTE | 2016-08-02 09:28 | Progress Note ---
Subjective General Doing well all over, complain of pain in right shoulder but this is not new, also pain dani hips, which is controlled. Had no fever but chills, slept well, feels much strongerl Physical Exam Vital Signs / I&Os Vital Signs Date Time Temp Pulse Resp B/P Pulse O2 O2 Flow FiO2 Ox Delivery Rate 08/02 0647 98.2 88 20 165/67 98 Room Air 0.0 08/02 0211 98.2 88 20 173/77 100 Room Air 08/01 2226 98.8 81 16 151/69 100 Room Air 08/01 1945 Room Air 08/01 1822 99.9 97 18 172/71 99 Room Air 08/01 1110 92 18 163/78 100 08/01 0922 97.9 I&O 08/01 0800 08/01 1600 08/02 0000 Intake Total 9349 623 9188 Output Total 247 221 2105 Balance 4666 562 7870 General Appearance Alert, No acute distress Lungs Clear to auscultation Cardiovascular Normal S1 and S2 Abdomen Normal bowel sounds, Soft, No tenderness Extremities has erythema with edema in the dorsum of left foot, also small capped uleceration in right G.toe LAB Results Laboratory Tests 08/01 08/02 1130 0420 Chemistry Plasma Sodium (136 - 145 mmol/L) 134 Plasma Potassium (3.5 - 5.1 mmol/L) 3.9 Plasma Chloride (98 - 107 mmol/L) 99 CO2 (Enzymatic) (21 - 32 mmol/L) 26 BUN (7 - 18 mg/dL) 14 Creatinine (0.6 - 1.3 mg/dL) 0.8 Est GFR ( Amer) (mL/min) >60 Est GFR (Non-Af Amer) (mL/min) >60 Glucose (70 - 110 mg/dL) 186 Plasma Calcium (8.5 - 10.1 mg/dL) 7.5 Total Bilirubin (0.0 - 1.0 mg/dL) 0.6 AST (15 - 37 U/L) 24 ALT (12 - 78 U/L) 23 Alkaline Phosphatase (46 - 116 U/L) 85 Total Protein (6.4 - 8.2 g/dL) 5.4 Albumin (3.3 - 5.0 g/dL) 1.4 Hematology WBC (4.5 - 11.5 K/uL) 11.9 RBC (4.50 - 5.90 M/uL) 3.52 Hgb (13.5 - 17.5 gm/dL) 10.2 Hct (41.0 - 53.0 %) 30.8 MCV (80 - 100 fL) 88 MCH (26 - 34 pg) 29 RDW (11.6 - 14.8 %) 15.3 Neut % (Auto) (50 - 75 %) 83.4 Lymph % (Auto) (25 - 40 %) 6.0 [place] % (Auto) (3 - 14 %) 6.3 Eos % (Auto) (0 - 4 %) 3.5 Baso % (Auto) (0 - 2 %) 0.8 Plt Count, EDTA (150 - 400 K/uL) 561 PUBS MCHC (31 - 37 g/dL) 33 Toxicology Vancomycin Trough (10.0 - 20.0 ug/mL) 12.8 Assessment and Plan Problem List 1. Psoas abscess, right Plan continue current abx.s, plan to discharge home with IV abx [facility] 2. Diabetes mellitus Plan needs better controll will adjust the medication 3. Elevated BP without diagnosis of hypertension Plan will adjust medication to controlle BP better
--- NOTE | 2016-08-02 10:29 | Progress Note ---
[place] [address] PROGRESS NOTE Name: MIGDALIA MAURICIO : 50 Sex: Male Report #: [id number] Service Date: 08/02/16 Service Time: 09 Subjective General Doing well all over, complain of pain in right shoulder but this is not new, also pain adni hips, which is controlled. Had no fever but chills, slept well, feels much strongerl Physical Exam Vital Signs / I&Os Vital Signs Date Time Temp Pulse Resp B/P Pulse O2 O2 Flow FiO2 Ox Delivery Rate 08/02 0647 98.2 88 20 165/67 98 Room Air 0.0 08/02 0211 98.2 88 20 173/77 100 Room Air 08/01 2226 98.8 81 16 151/69 100 Room Air 08/01 1945 Room Air 08/01 1822 99.9 97 18 172/71 99 Room Air 08/01 1110 92 18 163/78 100 08/01 0922 97.9 I&O 08/01 0800 08/01 1600 08/02 0000 Intake Total 0994 358 3256 Output Total 728 154 1598 Balance 4679 697 8786 General Appearance Alert, No acute distress Lungs Clear to auscultation Cardiovascular Normal S1 and S2 Abdomen Normal bowel sounds, Soft, No tenderness Extremities has erythema with edema in the dorsum of left foot, also small capped uleceration in right G.toe LAB Results Laboratory Tests 08/01 08/02 1130 0420 Chemistry Plasma Sodium (136 - 145 mmol/L) 134 Plasma Potassium (3.5 - 5.1 mmol/L) 3.9 Plasma Chloride (98 - 107 mmol/L) 99 CO2 (Enzymatic) (21 - 32 mmol/L) 26 BUN (7 - 18 mg/dL) 14 Creatinine (0.6 - 1.3 mg/dL) 0.8 Est GFR ( Amer) (mL/min) >60 Est GFR (Non-Af Amer) (mL/min) >60 Glucose (70 - 110 mg/dL) 186 Plasma Calcium (8.5 - 10.1 mg/dL) 7.5 Total Bilirubin (0.0 - 1.0 mg/dL) 0.6 AST (15 - 37 U/L) 24 ALT (12 - 78 U/L) 23 Alkaline Phosphatase (46 - 116 U/L) 85 Total Protein (6.4 - 8.2 g/dL) 5.4 Albumin (3.3 - 5.0 g/dL) 1.4 Hematology WBC (4.5 - 11.5 K/uL) 11.9 RBC (4.50 - 5.90 M/uL) 3.52 Hgb (13.5 - 17.5 gm/dL) 10.2 Hct (41.0 - 53.0 %) 30.8 MCV (80 - 100 fL) 88 MCH (26 - 34 pg) 29 RDW (11.6 - 14.8 %) 15.3 Neut % (Auto) (50 - 75 %) 83.4 Lymph % (Auto) (25 - 40 %) 6.0 [place] % (Auto) (3 - 14 %) 6.3 Eos % (Auto) (0 - 4 %) 3.5 Baso % (Auto) (0 - 2 %) 0.8 Plt Count, EDTA (150 - 400 K/uL) 561 PUBS MCHC (31 - 37 g/dL) 33 Toxicology Vancomycin Trough (10.0 - 20.0 ug/mL) 12.8 Assessment and Plan Problem List 1. Psoas abscess, right Plan continue current abx.s, plan to discharge home with IV abx [facility] 2. Diabetes mellitus Plan needs better controll will adjust the medication 3. Elevated BP without diagnosis of hypertension Plan will adjust medication to controlle BP better Dictated by: ЕКАТЕРИНА COLLINS DO [id number] [id number]
--- NOTE | 2016-08-02 10:29 | Progress Note ---
[place] [address] PROGRESS NOTE Name: MIGDALIA MAURICIO : 50 Sex: Male Report #: [id number] Service Date: 08/02/16 Service Time: 09 Subjective General Doing well all over, complain of pain in right shoulder but this is not new, also pain dani hips, which is controlled. Had no fever but chills, slept well, feels much strongerl Physical Exam Vital Signs / I&Os Vital Signs Date Time Temp Pulse Resp B/P Pulse O2 O2 Flow FiO2 Ox Delivery Rate 08/02 0647 98.2 88 20 165/67 98 Room Air 0.0 08/02 0211 98.2 88 20 173/77 100 Room Air 08/01 2226 98.8 81 16 151/69 100 Room Air 08/01 1945 Room Air 08/01 1822 99.9 97 18 172/71 99 Room Air 08/01 1110 92 18 163/78 100 08/01 0922 97.9 I&O 08/01 0800 08/01 1600 08/02 0000 Intake Total 6764 378 7655 Output Total 068 848 6657 Balance 5492 555 3628 General Appearance Alert, No acute distress Lungs Clear to auscultation Cardiovascular Normal S1 and S2 Abdomen Normal bowel sounds, Soft, No tenderness Extremities has erythema with edema in the dorsum of left foot, also small capped uleceration in right G.toe LAB Results Laboratory Tests 08/01 08/02 1130 0420 Chemistry Plasma Sodium (136 - 145 mmol/L) 134 Plasma Potassium (3.5 - 5.1 mmol/L) 3.9 Plasma Chloride (98 - 107 mmol/L) 99 CO2 (Enzymatic) (21 - 32 mmol/L) 26 BUN (7 - 18 mg/dL) 14 Creatinine (0.6 - 1.3 mg/dL) 0.8 Est GFR ( Amer) (mL/min) >60 Est GFR (Non-Af Amer) (mL/min) >60 Glucose (70 - 110 mg/dL) 186 Plasma Calcium (8.5 - 10.1 mg/dL) 7.5 Total Bilirubin (0.0 - 1.0 mg/dL) 0.6 AST (15 - 37 U/L) 24 ALT (12 - 78 U/L) 23 Alkaline Phosphatase (46 - 116 U/L) 85 Total Protein (6.4 - 8.2 g/dL) 5.4 Albumin (3.3 - 5.0 g/dL) 1.4 Hematology WBC (4.5 - 11.5 K/uL) 11.9 RBC (4.50 - 5.90 M/uL) 3.52 Hgb (13.5 - 17.5 gm/dL) 10.2 Hct (41.0 - 53.0 %) 30.8 MCV (80 - 100 fL) 88 MCH (26 - 34 pg) 29 RDW (11.6 - 14.8 %) 15.3 Neut % (Auto) (50 - 75 %) 83.4 Lymph % (Auto) (25 - 40 %) 6.0 [place] % (Auto) (3 - 14 %) 6.3 Eos % (Auto) (0 - 4 %) 3.5 Baso % (Auto) (0 - 2 %) 0.8 Plt Count, EDTA (150 - 400 K/uL) 561 PUBS MCHC (31 - 37 g/dL) 33 Toxicology Vancomycin Trough (10.0 - 20.0 ug/mL) 12.8 Assessment and Plan Problem List 1. Psoas abscess, right Plan continue current abx.s, plan to discharge home with IV abx [facility] 2. Diabetes mellitus Plan needs better controll will adjust the medication 3. Elevated BP without diagnosis of hypertension Plan will adjust medication to controlle BP better Dictated by: ЕКАТЕРИНА COLLINS DO 0914 0914
[2016-08-02 11:03] VITALS: BP 168/80
--- NOTE | 2016-08-02 13:50 | DIAGNOSTIC IMAGING REPORT ---
PROCEDURE: XR CHEST 1 VIEW INDICATION: CONFIRM PICC PLACEMENT TECHNIQUE: Portable AP view 01:22 p.m. COMPARISON: Chest 07/27/2016 FINDINGS: Lungs are clear. Heart and mediastinum are normal. Thorax is normal. PICC line is in good position. Tip in the SVC. IMPRESSION: 1. Negative chest. 2. PICC line in good position. Results were called to [id number]
--- NOTE | 2016-08-02 16:42 | DIAGNOSTIC IMAGING REPORT ---
REFERRING PHYSICIAN/PROVIDER: Naresh Shane MD CONSULTING LASTING ROOM SUPERVISOR: Jose Mendenhall MD PROCEDURE: M-mode 2D echocardiography with spectral and color flow Doppler TECHNICAL QUALITY: Fair INDICATION: r/o endocarditis RHYTHM DURING PROCEDURE: Sinus rhythm with PVC's INTERPRETATIONS: LEFT VENTRICLE: Normal left ventricular size with normal left ventricular systolic function. Calculated ejection fraction is 67%. RIGHT VENTRICLE: Normal right ventricular size and systolic function. There is a prominent moderator band in the right ventricle. ATRIA: Severe left atrial enlargement with a LA volume index = 67 ml/m2. Moderate right atrial enlargement. MITRAL VALVE: There is no evidence of mass or thrombus. There is mild mitral regurgitation. AORTIC VALVE: There is no evidence of mass or thrombus. There is no evidence of aortic stenosis. There is trace aortic regurgitation. TRICUSPID VALVE: There is no evidence of mass or thrombus. There is trace mitral regurgitation. Mildly increased right ventricular systolic pressure at 38 mmHg. PULMONIC VALVE: There is trace pulmonic regurgitation GREAT VESSELS: The ascending aorta is normal in size PERICARDIUM: There is a trace, physiologic pericardial effusion IMPRESSION: 1. Normal biventricular size and systolic function 2. Severe left atrial enlargement (LA volume index = 67 ml/m2) 3. Moderate right atrial enlargement 4. Mild mitral regurgitation 5. No evidence of endocarditis on this TTE 6. Mildly increased right ventricular systolic pressure (RVSP = 38 mmHg)
[2016-08-02 19:53] VITALS: BP 166/77
[2016-08-02 22:44] VITALS: BP 158/68
[2016-08-03 02:29] VITALS: BP 132/67
[2016-08-03 07:10] VITALS: BP 128/61
--- NOTE | 2016-08-03 09:17 | Progress Note ---
Subjective General no fever or chills, still has pain in right shoulder (chronic), no lower abdominal pain, no pain in left foot, he thinks his foot improved dramatically, Physical Exam Vital Signs / I&Os Vital Signs Date Time Temp Pulse Resp B/P Pulse O2 O2 Flow FiO2 Ox Delivery Rate 08/03 08 Room Air 08/03 0710 98.1 73 16 128/61 99 Room Air 0.0 08/03 0229 98.4 81 16 132/67 99 Room Air 08/02 2244 98.6 87 20 158/68 99 Room Air 08/02 2109 Room Air 08/02 195 98.2 86 22 166/77 100 Room Air 08/02 1103 99.0 93 22 168/80 99 Room Air 0.0 08/02 0950 98 I&O 08/03 0000 08/02 1600 08/02 08 Intake Total 7226 571 3887 Output Total 1949 2024 1250 Balance -595 -1199 670 General Appearance No acute distress Lungs Clear to auscultation Cardiovascular Normal S1 and S2 Extremities erythema and edema improved in left foot not tender in palpation LAB Results Laboratory Tests 08/03 0425 Chemistry Plasma Sodium (136 - 145 mmol/L) 136 Plasma Potassium (3.5 - 5.1 mmol/L) 3.7 Plasma Chloride (98 - 107 mmol/L) 100 CO2 (Enzymatic) (21 - 32 mmol/L) 28 BUN (7 - 18 mg/dL) 14 Creatinine (0.6 - 1.3 mg/dL) 0.9 Est GFR ( Amer) (mL/min) >60 Est GFR (Non-Af Amer) (mL/min) >60 Glucose (70 - 110 mg/dL) 125 Plasma Calcium (8.5 - 10.1 mg/dL) 8.0 Hematology WBC (4.5 - 11.5 K/uL) 10.1 RBC (4.50 - 5.90 M/uL) 3.39 Hgb (13.5 - 17.5 gm/dL) 9.8 Hct (41.0 - 53.0 %) 29.7 MCV (80 - 100 fL) 88 MCH (26 - 34 pg) 29 RDW (11.6 - 14.8 %) 14.6 Neut % (Auto) (50 - 75 %) 77.9 Lymph % (Auto) (25 - 40 %) 11.5 [place] % (Auto) (3 - 14 %) 7.3 Eos % (Auto) (0 - 4 %) 3.3 Baso % (Auto) (0 - 2 %) 0 Plt Count, EDTA (150 - 400 K/uL) 587 PUBS MCHC (31 - 37 g/dL) 33 Microbiology Date/Time Procedure - Status Source Growth 08/03 0306 MRSA Screen - RECD NASAL Assessment and Plan Problem List 1. Psoas abscess, right Plan continue IV abx total 2 wks, might need SNIF for this 2. Diabetes mellitus Plan blood suger much better controlled now 3. Elevated BP without diagnosis of hypertension Plan improved on lisinopril 4. Cellulitis of left foot Plan improved now on IV abx
[2016-08-03 10:06] VITALS: BP 163/72
[2016-08-03 14:39] VITALS: BP 147/72
[2016-08-03 18:22] VITALS: BP 161/66
[2016-08-03 22:20] VITALS: BP 158/76
[2016-08-04 03:46] VITALS: BP 177/82
[2016-08-04 06:52] VITALS: BP 133/70
--- NOTE | 2016-08-04 07:39 | Progress Note ---
Subjective General the pain in right shoulder is controlled no abd. pain, no fever mild chills, no pain in left foot, slept well, feels comfortalbe ambulating fine Physical Exam Vital Signs / I&Os Vital Signs Date Time Temp Pulse Resp B/P Pulse O2 O2 Flow FiO2 Ox Delivery Rate 08/04 0652 98.8 81 18 133/70 97 Room Air 0.0 08/04 0346 98.8 94 14 177/82 100 Room Air 08/03 2220 98.4 90 12 158/76 97 Room Air 08/03 1935 Room Air 0.0 08/03 1822 98.2 95 16 161/66 99 05/ 1439 98.8 82 16 147/72 100 05/ 1006 98.2 93 20 163/72 99 Room Air 0.0 08/03 0800 Room Air I&O 08/04 0000 08/03 1600 08/03 0800 Intake Total 1558 2256 1783 Output Total 1950 1750 2750 Balance -392 506 -967 General Appearance No acute distress Lungs Clear to auscultation Cardiovascular Regular rate and rhythm, Normal S1 and S2, No murmurs, gallops, rubs Abdomen Normal bowel sounds, Soft, No tenderness Extremities cellulitis in left foot is the same as yesterday Assessment and Plan Problem List 1. Psoas abscess Plan continue abx.s for one more week needs facility to do these so can be discharged 2. Diabetes mellitus Plan controlled now on lantus 3. HTN (hypertension) Plan controlled on lisinopril 4. Hyponatremia Plan will stop IV fluid since can drink now
[2016-08-04 11:42] VITALS: BP 139/71
[2016-08-04 14:43] VITALS: BP 150/74
[2016-08-04 18:12] VITALS: BP 148/66
[2016-08-04 22:40] VITALS: BP 151/72
[2016-08-05 02:41] VITALS: BP 149/67
[2016-08-05 06:36] VITALS: BP 153/68
--- NOTE | 2016-08-05 07:41 | Progress Note ---
Subjective General no pain except back pain only when he has chills, concerned about back pain, no fever, eating and drinking and sleepin, ambulating fine Physical Exam Vital Signs / I&Os Vital Signs Date Time Temp Pulse Resp B/P Pulse O2 O2 Flow FiO2 Ox Delivery Rate 08/05 0636 98.4 81 18 153/68 98 Room Air 08/05 0241 98.2 80 16 149/67 100 Room Air 0.0 05 2240 98.1 88 16 151/72 100 Room Air 08/04 2112 Room Air 0.0 08/04 1812 100.6 85 16 148/66 100 05 1443 98.4 89 16 150/74 100 05 1142 98.1 93 18 139/71 98 Room Air 0.0 I&O 08/05 0000 08/04 1600 08/04 0800 Intake Total 690 1877 1273 Output Total 1750 1140 2075 Balance -1060 737 -802 General Appearance No acute distress Lungs Clear to auscultation Cardiovascular Regular rate and rhythm, Normal S1 and S2 Abdomen Normal bowel sounds, Soft, No tenderness Extremities erythema in left foot improved today, swelling down too, also erythema in right elbow LAB Results Laboratory Tests 08/05 0415 Chemistry Plasma Sodium (136 - 145 mmol/L) 136 Plasma Potassium (3.5 - 5.1 mmol/L) 3.7 Plasma Chloride (98 - 107 mmol/L) 102 CO2 (Enzymatic) (21 - 32 mmol/L) 29 BUN (7 - 18 mg/dL) 17 Creatinine (0.6 - 1.3 mg/dL) 0.9 Est GFR ( Amer) (mL/min) >60 Est GFR (Non-Af Amer) (mL/min) >60 Glucose (70 - 110 mg/dL) 177 Plasma Calcium (8.5 - 10.1 mg/dL) 7.9 Hematology WBC (4.5 - 11.5 K/uL) 8.3 RBC (4.50 - 5.90 M/uL) 3.24 Hgb (13.5 - 17.5 gm/dL) 9.4 Hct (41.0 - 53.0 %) 28.5 MCV (80 - 100 fL) 88 MCH (26 - 34 pg) 29 RDW (11.6 - 14.8 %) 14.9 Neut % (Auto) (50 - 75 %) 75.4 Lymph % (Auto) (25 - 40 %) 12.5 [place] % (Auto) (3 - 14 %) 7.8 Eos % (Auto) (0 - 4 %) 3.3 Baso % (Auto) (0 - 2 %) 1.0 Plt Count, EDTA (150 - 400 K/uL) 720 PUBS MCHC (31 - 37 g/dL) 33 Assessment and Plan Problem List 1. Psoas abscess Plan [facility] with [facility] abx.s 2. Cellulitis of left foot Plan improved today, continue IV Abx 3. HTN (hypertension) Plan increase lisinopril to 10mg daily 4. Back pain Plan told pt that he had MRI done and has several reasons for this beside [place] abccess, DJD and spinal stenosis
[2016-08-05 10:43] VITALS: BP 173/75
[2016-08-05] MEDS ORDERED: FIRST-VANCOM25 MG/ML IV (14:29)
[2016-08-05] MEDS ORDERED: MEROPENEM1 GM IV (14:29)
[2016-08-05] MEDS ORDERED: OXAYDO5 MG PO (14:29)
[2016-08-05] MEDS ORDERED: HUMALOG KWI100 MG/ML SC (14:36)
[2016-08-05] MEDS ORDERED: LANTUS SOL100 UNITS/ SC (14:36)
--- NOTE | 2016-08-05 15:20 | DISCHARGE SUMMARY ---
ADMIT DATE: 07/27/2016 DISCHARGE DATE: 08/05/2016 DISCHARGE DIAGNOSES: 1. Right psoas muscle abscess 2. Cellulitis of the left foot 3. Diabetes mellitus 4. Diabetic neuropathy BRIEF HISTORY: This is a 66-year-old white male who was admitted on 07/28/2016. The patient presented with an 8 day history of back pain. Initial the pain was controllable with ibuprofen, but the pain progressively became worse and persistent, with a sharp stabbing sensation, radiation to the nerve type pain with occasional numbness, and radiating to the shoulders and thighs and trunk. An emergency workup showed the patient has a right psoas abscess with mild gas inflammation. A surgical consultation was obtained and conclusion was that the patient is to be treated with IV antibiotics only, and also phone consultation reportedly with Dr. Lang from [facility], indicated the patient was to start on IV vancomycin and imipenem, a total of 2 weeks. HOSPITAL COURSE: The patient was admitted to telemetry and started these antibiotics, and actually his symptoms, in terms of psoas muscle abscess and also cellulitis in the left foot, gradually improved, and right now his cellulitis in the left foot is improving. The patient also has some erythema in the right elbow area, which is improving. The patient also had a few small necrotic areas on the right foot, which [facility], which has been consulted. Finally, the patient decided to be discharged to the [facility] for the rest of the IV antibiotics, since the patient is stable and afebrile and doing fine and ambulating and eating and drinking. DISCHARGE INSTRUCTIONS/MEDICATIONS: The patient will be discharged to the [facility], to be followed up with their physician over there. Discharge medications will be: Insulin sliding scale, baclofen 5 mg t.i.d., lisinopril 5 mg daily, Protonix 40 mg daily. The patient also will continue oxycodone 5 mg every 6 hours for the pain. Follow up with primary care physician in the [facility].
== END 2016-08-05 16:00 | disposition home or self-care (01) | DRG 372 ==
LOC: ED SRH 23:09 → TRANS SRH 07-27 19:39 → CC SRH 07-27 20:49
PROVIDERS: ADMIT Family Medicine
DX: K68.12 Psoas muscle abscess (principal); L03.116 Cellulitis of left lower limb; E11.52 Type 2 diabetes mellitus with diabetic peripheral angiopathy with gangrene; E87.1 Hypo-osmolality and hyponatremia; E11.42 Type 2 diabetes mellitus with diabetic polyneuropathy; M54.9 Dorsalgia, unspecified; Z79.84 Long term (current) use of oral hypoglycemic drugs
CPT/HCPCS: 83463; 83738; 83741; 85241; 90004; 90047; 90065; 90074; 90098; 90100; 90616; 91583; 91585; 91643; 92031; 92132; 92610; 92720; 92760; 92761; 92762; 92763; 92764; 92765; 92766; 92767; 93004; 95059; 95150